=== PATIENT | female | born 1935 | race Caucasian/White ===

== ENCOUNTER → 2018-08-10 14:54 | Outpatient (CLI) | payer MEDICARE, SELFPAY ==
[2018-08-10 16:46] LABS: AST(SGOT) 21 U/L (15-37); Alanine Aminotransfer ALT/SGPT 28 U/L (13-56); Albumin, Serum 3.2 g/dL (3.2-5.0); Alkaline Phosphatase 140 U/L (45-117); Bilirubin, Direct 0.09 mg/dL (0.00-0.30); Globulin 4.1 g/dL (2.2-4.2); Protein, Total 7.3 g/dL (6.4-8.2)
== END ==
PROVIDERS: Family Provider Internal Medicine; PCP Internal Medicine; Referring Provider Clinical Nurse Specialist Acute Care; Visit Provider Clinical Nurse Specialist Acute Care
DX: M31.6 Other giant cell arteritis (principal)
CPT/HCPCS: 36415; 80076

== ENCOUNTER → 2018-08-27 08:50 | Outpatient (CLI) | payer MEDICARE, MEDICAID, SELFPAY ==
--- NOTE | 2018-08-27 09:05 | RAD_ITS ---
STUDY: AIR-CONTRAST UPPER GI SERIES. REASON FOR EXAM: Female, 82 years old. Chronic nausea with gastroesophageal reflux. FLUOROSCOPY TIME (if supplied): (0:42) minutes/seconds. 18 spot views were obtained. TECHNIQUE: The patient ingested barium. Multiple images of the esophagus, stomach and duodenum were obtained. COMPARISON: None. FINDINGS: The esophagus is unremarkable. There is no evidence of esophageal obstruction. There is no evidence of gastroesophageal reflux. The stomach and duodenum are unremarkable. There is no evidence of ulceration. No mass lesion is seen. RAD/Upper GI Series Only IMPRESSION: Unremarkable air contrast upper GI series. Electronically Signed: Asif Fiore, at 9:21 EDT , Service support ,
[2018-08-27 10:07] LABS: Erythrocyte Sedimentation Rate > 130 mm/hr (0-30)
== END ==
PROVIDERS: Family Provider Internal Medicine; PCP Internal Medicine; Referring Provider Nurse Practitioner Adult Health; Visit Provider Nurse Practitioner Adult Health
DX: R11.0 Nausea (principal); K29.60 Other gastritis without bleeding
CPT/HCPCS: 74246; 85652

== ENCOUNTER → 2018-10-04 14:56 | Outpatient (CLI) | payer MEDICARE, SELFPAY ==
[2015-02-17 16:11] VITALS: BMI 28.5
[2018-10-04 16:13] LABS: Erythrocyte Sedimentation Rate 29 mm/hr (0-30)
[2018-10-04 16:37] LABS: CRP < 2.90 mg/L (0.0-3.0)
== END ==
PROVIDERS: Family Provider Internal Medicine; PCP Internal Medicine; Referring Provider Psychiatry & Neurology Neurology; Visit Provider Psychiatry & Neurology Neurology
DX: R51 Headache (principal)
CPT/HCPCS: 36415; 85652; 86140

== ENCOUNTER 2018-10-04 15:19 | Observation (INO) | payer MEDICARE, MEDICAID, SELFPAY ==
[2018-10-04] VITALS (11 sets, daily range): BP systolic 108–166; BP diastolic 56–91; PULSE 69–89; RESP 15–22; TEMP 36.6–36.8; O2SAT 94–98; BMI 29.7; BMI 28.2
--- NOTE | 2018-10-04 15:34 | RAD_ITS ---
STUDY: X-RAY CHEST REASON FOR EXAM: Female, 82 years old. Chest pain. TECHNIQUE: Single AP portable view of the chest. COMPARISON: Comparison is made with prior study dated October 31, 2010. FINDINGS: EKG electrodes are seen. Elevation of the right hemidiaphragm. There is no demonstrated pleural abnormality. There is borderline cardiomegaly. Normal mediastinum and sharon. Normal visualized pulmonary arteries. There is atherosclerotic tortuosity of the aortic arch and descending thoracic aorta. Normal visualized thoracic spine. Normal visualized ribs, clavicles, and shoulders. There is no demonstrated abnormality of the visualized soft tissue structures of the upper abdomen. RAD/Chest 1 View (Portable) IMPRESSION: Borderline cardiomegaly. Electronically Signed: Asif Fiore, at 15:57 EDT , Service support ,
--- NOTE | 2018-10-04 15:34 | EKG12_ITS ---
Test Reason : CP Blood Pressure : / mmHG Vent. Rate : 090 BPM Atrial Rate : 090 BPM P-R Int : 150 ms QRS Dur : 080 ms QT Int : 340 ms P-R-T Axes : 052 -57 026 degrees QTc Int : 415 ms Normal sinus rhythm Left axis deviation Inferior-posterior infarct , age undetermined , cannot be excluded Poor R-Wave Progression Abnormal ECG Confirmed by YARI PAYNE, BRIAN ([id number]), editorial specialist MONSERRAT ALLEN ([id number]) on 10/08/2018 10:28:16 AM Referred By: Juan Carlos Pirere Confirmed By:BRIAN GREENBERG MD
[2018-10-04] MEDS: Aspirin 81 MG TAB.CHEW 182 MG PO (15:54)
--- NOTE | 2018-10-04 15:57 | ED.VISSUMM ---
- ER Visit Summary Date of Service: 10/04/18 Chief Complaint: [Chest pain and palpitations] History of Present Illness: The patient is a 82 F [presents to the emergency department from her primary care physician's office after complaining of palpitations and chest discomfort. Patient is somewhat of a poor historian due to history of some dementia however she states that she always has this pain. The daughter who has power of sports attorney takes care of the patient states that this is the first time she has her the patient complain of this. Patient denies any recent travel or surgery. Patient not had a fever cough. Patient does complain of dyspnea that is chronic as well as nausea. Patient's been having hot flashes. Patient does have a history of glaucoma and frequent headaches.] Physical Examination: [HEENT-PERRLA, EOMI. Cranial nerves II through XII grossly intact. TMs clear. Mucous membranes moist. No adenopathy. Cardiovascular-regular rate and rhythm without murmur or ectopy Lungs-clear to auscultation, chest wall stable without crepitus or subcu emphysema Abdomen-normoactive bowel sounds, soft, nontender, no rebound or rigidity, no peritoneal signs. Extremities-intact ?4, normal range of motion, normal pulses, atraumatic] Test Results: [EKG obtained arrival shows sinus rhythm ventricular rate of [address] changes and old inferior infarct noted. CBC with differential showed a white blood cell count of 17.2, hemoglobin 14.8, hematocrit 45, platelets 240. Chemistries unremarkable. Troponin was less than 0.015. Urinalysis was normal. Chest x-ray showed some mild cardiomegaly otherwise nothing acute.] Emergency Department Course and Treatment: [Patient received aspirin and initially was given 1 sublingual nitroglycerin. Patient's discomfort would come and go and at one point she had diaphoresis and a repeat EKG was obtained that showed a sinus rhythm with rate of 79 bpm and evidence of old inferior infarct, EKG unchanged from first EKG.] Treatment Plan: [Admit for further work-up and evaluation ] Disposition: [Admit] Impression: [Chest pain-rule out acute coronary syndrome] This note was generated with [employer]ation software. It may contain incorrect words, spelling, and punctuation that were not noted in review of the chart prior to signing ED Disposition - Plan for ED Patient: Referrals: oGld Marrero MD [Primary Care Provider] -
[2018-10-04 16:14] LABS: Absolute Lymphocyte Count 0.94 X10^3/ul (0.83-4.51); Absolute Neutrophil Count 15.2 X10^3/uL (2.0-7.7); Basophil# 0.01 X10^3/uL; Basophil% 0.1 % (0-1); Eosinophil# 0.01 X10^3/uL; Eosinophils% 0.1 % (0-5); Hematocrit 44.8 % (37-47); Hemoglobin 14.8 g/dl (12.0-15.0); Lymphocyte # 0.94 X10^3/ul (4.0); Lymphocyte % 5.5 % (19-41); Mean Corpuscular Hgb 30.4 pg (27.0-32.0); Mean Platelet Vol. 10.4 fl (6.2-12.0); Monocyte# 0.86 X10^3/uL; Neutrophil # 15.15 X10^3/uL (2.7-7.7); Neutrophil % 88.1 % (47-70); Platelet Count 240 K/mm3 (150-450); RBC Distribution Width CV 14.2 % (11.6-14.6); RBC Distribution Width SD 47.8 fl (35.1-43.9); Red Blood Count 4.87 M/mm3 (4.2-5.4); White Blood Count 17.2 K/mm3 (4.4-11.0)
[2018-10-04 16:17] LABS: POSITIVE COUNT NO; POSITIVE DIFFERENTIAL NO; POSITIVE MORPHOLOGY NO
[2018-10-04] MEDS: 0.9% Normal Saline 1,000 ML 150 ML IV (16:30)
[2018-10-04 16:35] LABS: Bacteria 0 SEEN /hpf (None Seen); Mucous, Urine 0 SEEN /hpf (<or=2+); Red Blood Cells-Urine 0 SEEN /hpf (0-5)
[2018-10-04 16:36] LABS: Color, Urine Straw (Yellow); Glucose, Dipstick Normal (Normal); Ketone-Dipstick Negative (Negative); Leukocyte Esterase-Dipstick Negative /ul (Negative); Nitrite-Dipstick Negative (Negative); Occult Blood-Urine 10 /ul (Negative); Protein-Dipstick Negative (Negative); Urine Bilirubin Dipstick Negative (Negative); Urine Clarity Clear (Clear); Urine Urobilinogen Normal (Normal)
[2018-10-04 17:02] LABS: Squamous Epithelial Cells - UA 0-5 SEEN /hpf (5-10)
[2018-10-04 17:03] LABS: White Blood Cells 0-5 SEEN /hpf (0-5)
[2018-10-04 17:47] LABS: Anion Gap 10 (5-15); BUN 18 mg/dL (7-18); BUN/Creat Ratio 18.9 RATIO (10-20); Chloride 103 mmol/L (98-107); Creatinine, Serum 0.95 mg/dL (0.55-1.02); EST Glomerular Filtration Rate 60 mL/min (>60); Est Glom Filt Rate - Afr Amer 72 mL/min (>60); Glucose 155 mg/dL (74-106); Potassium 3.9 mmol/L (3.5-5.1); Sodium Level 137 mmol/L (136-145)
--- NOTE | 2018-10-04 18:05 | PCM.HP.STD ---
Problem List (1) Chest pain Status: Acute (2) Dementia Status: Acute Qualifiers: Dementia type: vascular dementia (3) History of TIA (transient ischemic attack) Status: Chronic History of Present Illness Date of Admission: 10/04/18 Chief Complaint: Chest pain The patient is a 82 year old F with past medical history of dementia, history of probable valvular heart disease in her childhood, resident with her daughter who comes in with complaints of chest pain. She was referred from her primary care office. She also complains of palpitations with occasional shortness of breath with diaphoresis. Denies any fever or chills. Patient describes the chest pain as pressure-like, midsternal, associated with diaphoresis, comes and goes, lasts for a few seconds, associated with palpitations, denied any leg swelling or orthopnea or PND. Vitals in the ED show blood pressure 166/77, temperature 97.8 F, heart rate 89, respiratory 16, SPO2 96% on room air. Initial WBC count was 17.2, hemoglobin 14.8, platelet count was 240, BMP was unremarkable, troponins were negative. EKG shows normal sinus rhythm, no acute ST changes. Chest x-ray shows borderline cardiomegaly. Past Medical History Past Medical History (Chronic Problems): Chronic Problems Chronic diarrhea (Chronic) Urinary incontinence (Chronic) History of TIA (transient ischemic attack) (Chronic) IBS (irritable bowel syndrome) (Chronic) Allergies aspirin Adverse Reaction (Verified 02/17/15 16:14) Nausea Home Medications: Ambulatory Orders Medication Instructions Recorded Pantoprazole Sodium [Protonix] 40 mg PO DAILY 09/11/13 Acetaminophen [Tylenol Extra 1,000 mg PO Q8H PRN 10/04/18 Strength] Donepezil HCl [Aricept] 5 mg PO QHS 10/04/18 Memantine Hydrochloride [Namenda] 10 mg PO DAILY 10/04/18 Prednisone 20 mg PO TID 10/04/18 Surgical History: hysterectomy, - - s/p bladder sling surgery for urine incontinence Psychiatric History: No pertinent psych hx MEMBERSHIP CORRESPONDENT History: No pertinent MEMBERSHIP CORRESPONDENT history Lives: With Family Smoking Status: Never smoker Tobacco Use: Non-smoker Alcohol: None Drugs: None - *Family History Maternal History Items: No pertinent history Paternal History Items: No pertinent history Review of Systems Constitutional: Denies: Anorexia, Chills, Fever, Malaise, Weakness, Weight Change Eyes: Denies: Blurred vision, Cataracts, Conjunctivae Inflammation, Pain, Redness, Vision Change HEENT: Denies: Difficulty Hearing, Difficulty Swallowing, Head Aches, Hearing Changes, Sinus Congestion, Sinus Drainage, Sore Throat, Visual Changes Cardiovascular: Reports: Chest Pain, Chest Pressure, Chest Tightness. Denies: Claudication, Orthopnea, Palpitations, Paroxysmal Noc. Dyspnea Respiratory: Denies: Cough, Hemoptysis, Shortness of breath at rest, Shortness of breath upon exertion, Sputum production Gastrointestinal: Denies: Abdominal Pain, Constipation, Hematemesis, Hematochezia, Nausea, Vomiting Genitourinary: Denies: Dysuria, Frequency, Incontinence Musculoskeletal: Denies: Joint Pain, Joint stiffness, Joint swelling, Joint Tenderness Skin: Denies: Rash, Wounds Neurological: Denies: Numbness, Tingling, Focal weakness Psychiatric: Denies: Anxiety, Depression, Homicidal Ideations, Suicidal Ideations Hematologic/ Lymphatic: Denies: Easy Bruising, Easy Bleeding VTE Information - Inpt Only VTE Present on Admission: No VTE Pharm Prophylaxis ordered?: Yes Patient Problems: Active and Suspected Problems Chest pain (Acute) Dementia (Acute) - Physical Exam General: Alert, Oriented x3, Cooperative, No apparent distress HEENT: Atraumatic, PERRLA, EOMI, Normocephalic Oral: Moist Mucosa Neck: Supple, No JVD, Negative Carotid Bruits Lungs: Clear to auscultation, Normal air movement Cardiovascular: Regular rate, Regular Rhythm, Normal S1, Normal S2, No murmurs Abdomen: Bowel Sounds Present, Soft, Non Tender, Non-Distended, No Hepato-splenomegaly Extremities: No edema Skin: No rashes, No breakdown Musculoskeletal: No Tenderness to Palpation of Joints or Extremities Lymphatic: No Cervical, Supraclavicular, or Inguinal Adenopathy Neurological: Cranial nerves II-XII grossly intact, Neuro grossly intact Psych/Mental Status: Normal Affect, Appropriate Vital Signs Temp Pulse Resp BP Pulse Ox 97.8 F 84 20 H 108/91 H 94 10/04/18 15:25 10/04/18 17:22 10/04/18 17:22 10/04/18 17:22 10/04/18 17:22 Oxygen Delivery Method Room Air Weight: 80.966 kg Body Mass Index (BMI) 29.7 Laboratory Tests Past 24 Hrs 10/04/18 10/04/18 10/04/18 16:06 16:06 16:30 WBC 17.2 H RBC 4.87 Hgb 14.8 Hct 44.8 MCV 92.0 MCH 30.4 MCHC 33.0 RDW 14.2 RDW Differential 47.8 H Plt Count 240 MPV 10.4 Immature Gran % (Auto) 1.200 H Neut % (Auto) 88.1 H Lymph % (Auto) 5.5 L [place] % (Auto) 5.0 Eos % (Auto) 0.1 Baso % (Auto) 0.1 Absolute Neuts (auto) 15.2 H Absolute Lymphs (auto) 0.94 Total Counted Not Reportable Sodium Cancelled Potassium Cancelled Chloride Cancelled Carbon Dioxide Cancelled Anion Gap Cancelled BUN Cancelled Creatinine Cancelled Estim Creat Clear Calc Cancelled Est GFR (MDRD) Af Amer Cancelled Est GFR (MDRD) Non-Af Cancelled BUN/Creatinine Ratio Cancelled Glucose Cancelled Calcium Cancelled Troponin I Cancelled Urine Color Straw Urine Clarity Clear Urine pH 6.0 Ur Specific [place] 1.010 Urine Protein Negative Urine Glucose (UA) Normal Urine Ketones Negative Urine Occult Blood 10 H Urine Nitrite Negative Urine Bilirubin Negative Urine Urobilinogen Normal Ur Leukocyte Esterase Negative Urine RBC 0 SEEN Urine WBC 0-5 SEEN Ur Squamous Epith Cells 0-5 SEEN Urine Bacteria 0 SEEN Urine Mucus 0 SEEN 10/04/18 17:10 WBC RBC Hgb Hct MCV MCH MCHC RDW RDW Differential Plt Count MPV Immature Gran % (Auto) Neut % (Auto) Lymph % (Auto) [place] % (Auto) Eos % (Auto) Baso % (Auto) Absolute Neuts (auto) Absolute Lymphs (auto) Total Counted Sodium 137 Potassium 3.9 Chloride 103 Carbon Dioxide 24.0 Anion Gap 10 BUN 18 Creatinine 0.95 Estim Creat Clear Calc 42.50 Est GFR (MDRD) Af Amer 72 Est GFR (MDRD) Non-Af 60 BUN/Creatinine Ratio 18.9 Glucose 155 H Calcium 8.0 L Troponin I < 0.015 Urine Color Urine Clarity Urine pH Ur Specific [place] Urine Protein Urine Glucose (UA) Urine Ketones Urine Occult Blood Urine Nitrite Urine Bilirubin Urine Urobilinogen Ur Leukocyte Esterase Urine RBC Urine WBC Ur Squamous Epith Cells Urine Bacteria Urine Mucus Assessment/Plan All Active Problems Chest pain (Acute) Dementia (Acute) 82 year old F with past medical history of dementia, history of probable valvular heart disease in her childhood, resident with her daughter who comes in with complaints of chest pain. 1. Chest pain, suggestive of angina, troponins are negative, EKG unremarkable, stable vitals, no history of CAD Plan: Admit to PCU, monitor on telemetry, aspirin, nitro prn, lipid profile 2. Leucocytosis, likely reactive, no signs of infection 3. Probable valvular heart disease, in childhood, will get 2d-ECHO. 4. Dementia, on donezepil, memantine 5. DVT PPx- Heparin SC Code Visit OBSV E&M: 90681 Initial observation care L3
--- NOTE | 2018-10-04 18:22 | CASEMGMT ---
RN CM Assessment Introduced role of RN CM to patient and patient daughter Nicko at bedside. Patient with Short Term memory loss, Information for assessment provided by Dtprabhjot Maharaj.?Care providers, pharmacy, and demographics verified. Presentation: Palpitations and Chest Discomfort Admit Dx: CP Re-Admit: No Barriers/Issues: Applied for Medicaid x2 months ago, in process. Dtr has s/w [facility] [employer]ging for a Aide 3/week but they currently don't have any and she was told to contact [facility]. PCP: Gold Marrero Specialists: Neuro- Dr Pierre, Opth- supposed to have Cataract Surgery at the end of this month Preferred Pharmacy: [facility] Insurance: [employer] Rx Benefit:?Yes LNOK: Dtr Nicko Jayden LW/HPOA: Yes, HPOA- Dtr Nicko Beth Living Arrangements:? Lives with Domingo Maharaj and patient's sons, grandchildren in a SS Home, 4 steps to enter ADL?s: Ambulates with a Rollator, Requires assistance by Dtr with bathing and dressing. Transportation: Domingo Maharaj DME: Rollator, Commode, Built in Shower Chair, Grab bars. HHC: None SNF: None Goal: Home DC PLAN: Home with no anticipated needs identified at this time. Patient and Dtprabhjot Maharaj state have a lot of family support at home. RUBENS Boles
--- NOTE | 2018-10-04 18:40 | EKG12_ITS ---
Test Reason : REPEAT-CP Blood Pressure : / mmHG Vent. Rate : 079 BPM Atrial Rate : 079 BPM P-R Int : 162 ms QRS Dur : 082 ms QT Int : 372 ms P-R-T Axes : 025 -51 020 degrees QTc Int : 426 ms Normal sinus rhythm Left axis deviation Inferior infarct , age undetermined Poor R-Wave Progression Abnormal ECG Confirmed by YARI PAYNE, BRIAN ([id number]), editorial specialist MONSERRAT ALLEN ([id number]) on 10/08/2018 10:28:45 AM Referred By: Juan Carlos Pierre Confirmed By:BRIAN GREENBERG MD
--- NOTE | 2018-10-04 18:40 | ECHOD_ITS ---
Reason For Study: CHEST PAIN Procedure This was a 2D Doppler, Color Flow transthoracic echocardiogram. The exam was of adequate technical quality. Exam performed portable in patient room. Left Ventricle Normal LV size. Left ventricular systolic function is normal. The estimated ejection fraction is 70 %. No evidence for diastolic dysfunction. No regional wall motion abnormalities noted. Right Ventricle Normal RV size. Normal systolic function. Atria Normal left atrium. Normal right atrium. No doppler evidence for ASD. Mitral Valve There is no mitral annular calcification. Normal mitral valve. Mild (1+) mitral valve insufficiency. Tricuspid Valve Normal tricuspid valve. Mild (1+) tricuspid valve insufficiency. Right ventricular systolic pressure estimated to be 22 mmHg. Aortic Valve Trisinus/trileaflet aortic valve. Normal aortic valve. Pulmonic Valve The pulmonic valve is not well visualized. Trivial pulmonic valve insufficiency. Great Vessels Normal sized aortic root. MMode/2D Measurements & Calculations LVIDd: 4.2 cm IVSd: 0.81 cm Ao root diam: 3.0 cm LVIDs: 2.5 cm LVPWd: 0.86 cm FS: 39.5 % LAV(MOD-bp): 28.1 ml LA A4 area: 11.8 cm2 LA dimension(2D): 3.1 cm LAV(MOD-bp) Indexed: 15.3 ml/m2 LAV(MOD-sp2): 29.5 ml LAV(MOD-sp4): 25.5 ml RA A4 area: 10.0 cm2 Time Measurements MV dec time: 0.22 sec Doppler Measurements & Calculations MV E max antonio: 64.6 cm/sec Lat Peak E' Antonio: 6.8 cm/sec Med Peak E' Antonio: 5.8 cm/sec MV A max antonio: 91.0 cm/sec E/E' lat: 9.5 E/E' med: 11.1 MV E/A: 0.71 Ao V2 max: 123.3 cm/sec LV V1 max: 109.4 cm/sec TR max antonio: 215.8 cm/sec Ao max P.1 mmHg LV V1 max P.8 mmHg TR max P.1 mmHg Interpretation Summary Left ventricular systolic function is normal. The estimated ejection fraction is 70 %. Mild (1+) mitral valve insufficiency. Mild (1+) tricuspid valve insufficiency. Trivial pulmonic valve insufficiency. Right ventricular systolic pressure estimated to be 22 mmHg. No evidence for diastolic dysfunction. Ordering Physician: Casi Juares Referring Physician: BARB PARKER Performed By: Camila Han, RDCS, RVT
[2018-10-04] MEDS: 0.9% Normal Saline 1,000 ML 75 ML IV (18:52)
[2018-10-04 19:40] LABS: Magnesium 2.4 mg/dL (1.6-2.6)
[2018-10-04] MEDS: Acetaminophen 500 MG Tablet 1000 MG PO (20:44)
[2018-10-04] MEDS: Heparin Injection (Vial) 5,000 UNIT/ML VIAL 5000 UNIT SC (22:12)
[2018-10-04] MEDS: Donepezil HCl 5 MG Tablet PO (22:12)
[2018-10-05] MEDS: MELATONIN 3 MG TABLET PO (00:33)
[2018-10-05 02:59] VITALS: PULSE 70
--- NOTE | 2018-10-05 03:07 | EKG12_ITS ---
Test Reason : AM EKG Blood Pressure : / mmHG Vent. Rate : 070 BPM Atrial Rate : 070 BPM P-R Int : 168 ms QRS Dur : 082 ms QT Int : 390 ms P-R-T Axes : 046 -44 038 degrees QTc Int : 421 ms Normal sinus rhythm Left axis deviation Abnormal ECG When compared with ECG of 04-OCT-2018 19:30, MANUAL COMPARISON REQUIRED, DATA IS UNCONFIRMED Confirmed by ZEINA KELLOGG ([id number]), deputy editor in chief ORTIZ MARQUEZ ([id number]) on 10/12/2018 7:17:48 AM Referred By: Juan Carlos Pierre Confirmed By:ZEINA KELLOGG
[2018-10-05 04:18] VITALS: BP 133/74; PULSE 72; RESP 18; TEMP 36.9; O2SAT 93
--- NOTE | 2018-10-05 05:55 | EKG12_ITS ---
Test Reason : CP ADMISSION Blood Pressure : / mmHG Vent. Rate : 083 BPM Atrial Rate : 083 BPM P-R Int : 168 ms QRS Dur : 084 ms QT Int : 356 ms P-R-T Axes : 068 -51 058 degrees QTc Int : 418 ms Normal sinus rhythm Left axis deviation Inferior infarct , age undetermined Abnormal ECG When compared with ECG of 04-OCT-2018 17:48, MANUAL COMPARISON REQUIRED, DATA IS UNCONFIRMED Confirmed by ZEINA KELLOGG ([id number]), photographic editor MONSERRAT ALLEN ([id number]) on 10/11/2018 11:03:12 AM Referred By: Juan Carlos Pierre Confirmed By:ZEINA KELLOGG
[2018-10-05 06:37] VITALS: BP 134/71; PULSE 78; RESP 18; TEMP 36.4; O2SAT 92
[2018-10-05] MEDS: Aspirin E.C. 81 MG Tablet PO (06:40)
[2018-10-05 06:48] LABS: Hematocrit 41.4 % (37-47); Hemoglobin 13.6 g/dl (12.0-15.0); Mean Corp Hgb Conc 32.9 g/gl (32-36); Mean Corpuscular Hgb 29.9 pg (27.0-32.0); Mean Platelet Vol. 9.3 fl (6.2-12.0); Platelet Count 274 K/mm3 (150-450); RBC Distribution Width CV 13.6 % (11.6-14.6); RBC Distribution Width SD 44.2 fl (35.1-43.9); Red Blood Count 4.55 M/mm3 (4.2-5.4); Scan Indicated on CBC? Y/N NO; White Blood Count 13.2 K/mm3 (4.4-11.0)
[2018-10-05 06:55] LABS: Prothrombin Time (Protime)PT. 12.6 SECONDS (11.7-14.9)
[2018-10-05 06:56] LABS: Partial Thromboplast Time 24.1 Seconds (24.1-36.2)
[2018-10-05 07:15] LABS: Anion Gap 4 (5-15); BUN 16 mg/dL (7-18); BUN/Creat Ratio 21.3 RATIO (10-20); Chloride 105 mmol/L (98-107); Cholesterol 267 mg/dL (200); Creatinine, Serum 0.75 mg/dL (0.55-1.02); EST Glomerular Filtration Rate 79 mL/min (>60); Est Glom Filt Rate - Afr Amer 95 mL/min (>60); Estimated Creatinine Clearance 40.38 ml/min; Glucose 78 mg/dL (74-106); High Density Lipoprotein 48 mg/dL; Sodium Level 136 mmol/L (136-145); Triglycerides 312 mg/dL; Very Low Density Lipoprotein 62 mg/dL (5-40)
[2018-10-05 07:18] VITALS: PULSE 74
[2018-10-05] MEDS: predniSONE 20 MG Tablet PO ×2 (09:46→11:42)
[2018-10-05] MEDS: Pantoprazole Sodium 40 MG Tablet PO (09:46)
[2018-10-05] MEDS: Memantine Hydrochloride 10 MG Tablet PO (09:47)
[2018-10-05 12:30] VITALS: BP 128/79; PULSE 84; RESP 18; TEMP 36.7; O2SAT 97
--- NOTE | 2018-10-05 13:19 | STRESSREP_ITS ---
Stress Test Report Date: 10/05/2018 Procedure: Pharmacologic stress nuclear imaging study Indications: Chest pain Consent: Per the patient Procedure: The patient underwent pharmacologic (Regadenoson) evaluation with a peak heart rate of 90 beats per minute (64 %predicted maximal heart rate) and a peak blood pressure of 124/78 mmHg. The baseline ECG demonstrated normal sinus rhythm. The peak pharmacologic ECG demonstrated no obvious ECG changes. There were no cardiac dysrhythmias pretest, during pharmacologic infusion, or recovery. The patient noted chest discomfort in recovery with spontaneous resolution. The examination was discontinued secondary to completion of protocol. Impression: 1. Pharmacologic (Regadenoson) evaluation 2. Peak pharmacologic ECG with no obvious ECG changes. 3. There were no cardiac dysrhythmias pretest, during pharmacologic infusion, or recovery. 4. Nuclear images pending Myocardial perfusion imaging study: Technique: The patient was injected with 10.6 millicuries of technetium 99m Cardiolite and subsequently rest SPECT Cardiolite nuclear imaging was obtained in the horizontal long, vertical long, and short axis views. The patient underwent pharmacologic (Regadenoson) evaluation with a peak heart rate of 90 beats per minute (64 % percent predicted maximal heart rate) and a peak blood pressure of 124/78 mmHg. The patient was injected with 36 millicuries of technetium 99m Cardiolite and subsequently stress SPECT Cardiolite nuclear imaging was obtained in the horizontal long, vertical long, and short axis views. A gated Cardiolite study at peak stress was obtained. Interpretation: Rest and stress SPECT Cardiolite nuclear imaging status post realignment, normalization, and attenuation correction demonstrate relative uniform tracer uptake and myocardial perfusion appearing within normal limits. There is end systolic thickening and brightening. The gated Cardiolite study demonstrates myocardial thickening and inward wall motion. The reported LVEF is 94 %. Impression: 1. Rest and stress SPECT Cardiolite nuclear imaging demonstrate relative uniform tracer uptake and myocardial perfusion appearing within normal limits. 2. The gated Cardiolite study reports an LVEF of 94 %. This note was generated with [employer] software. It may contain incorrect words, spelling, and punctuation that were not noted in checking the note before signing.
--- NOTE | 2018-10-05 13:35 | PCM.DC ---
- Discharge Diagnoses Current Active Problems: Current Active and Chronic Problems Chest pain (Acute) Dementia (Acute) You will use the following diet at home:: Cardiac Your food should be the consistency of: Regular Your liquids should be the consistency of: Regular/Thin Discharge Activity: Return to Normal Activity Allergies/Adverse Reactions: Allergies aspirin Adverse Reaction (Verified 02/17/15 16:14) Nausea Medications to take at Discharge Pantoprazole Sodium [Protonix] 40 mg PO DAILY 09/11/13 Acetaminophen [Tylenol] 1,000 mg PO Q8H PRN 10/04/18 Donepezil HCl [Aricept] 5 mg PO QHS 10/04/18 Memantine Hydrochloride [Namenda] 10 mg PO DAILY 10/04/18 Prednisone 20 mg PO TID 10/04/18 Atorvastatin Calcium 40 mg PO DAILY #30 tablet 10/05/18 The following prescriptions were given: Atorvastatin Calcium 40 mg PO DAILY #30 tablet Primary Care Physician: Gold Marrero MD [Primary Care Provider] - Please follow up with your Primary Care Physician in: 1-2 weeks Test Results: Test results from this visit will be discussed in further detail at your follow-up appointment, if applicable. Proposed Discharge Date: 10/05/18
--- NOTE | 2018-10-05 13:46 | DCINST_ITS ---
- Discharge Diagnoses Current Active Problems: Current Active and Chronic Problems Chest pain (Acute) Dementia (Acute) You will use the following diet at home:: Cardiac Your food should be the consistency of: Regular Your liquids should be the consistency of: Regular/Thin Discharge Activity: Return to Normal Activity Allergies/Adverse Reactions: Allergies aspirin Adverse Reaction (Verified 02/17/15 16:14) Nausea Medications to take at Discharge Pantoprazole Sodium [Protonix] 40 mg PO DAILY 09/11/13 Acetaminophen [Tylenol] 1,000 mg PO Q8H PRN 10/04/18 Donepezil HCl [Aricept] 5 mg PO QHS 10/04/18 Memantine Hydrochloride [Namenda] 10 mg PO DAILY 10/04/18 Prednisone 20 mg PO TID 10/04/18 Atorvastatin Calcium 40 mg PO DAILY #30 tablet 10/05/18 The following prescriptions were given: Atorvastatin Calcium 40 mg PO DAILY #30 tablet Primary Care Physician: Gold Marrero MD [Primary Care Provider] - Please follow up with your Primary Care Physician in: 1-2 weeks Test Results: Test results from this visit will be discussed in further detail at your follow- up appointment, if applicable. Proposed Discharge Date: 10/05/18
--- NOTE | 2018-10-05 14:04 | DS.PCM_ITS ---
<Kristian Mendoza - Last Filed: 10/05/18 13:37> Discharge Date and Diagnosis - Problem List Patient Problems: Active and Suspected Problems Chest pain (Acute) Dementia (Acute) Date of Admission: 10/04/18 Date of Discharge: 10/05/18 - Primary Discharge Diagnosis Active and Suspected Problems Chest pain (Acute) - musculoskeletal HLD Dementia (Acute) IBS ? Valvular heart disease - Secondary Discharge Diagnosis Chronic Problems Chronic diarrhea (Chronic) Urinary incontinence (Chronic) History of TIA (transient ischemic attack) (Chronic) IBS (irritable bowel syndrome) (Chronic) Hospital Course and Treatment Imaging Results: 10/05/18 05:55 Nuclear Stress Test - Chemical [NM] AM (NON MEDS) Negative for inducible ischemia RAD/Chest 1 View (Portable) IMPRESSION: Borderline cardiomegaly. Echocardiogram: Final results pending. Operations: None Procedures: 2-D Echocardiogram, Stress test Summary of Care Provided: Hospital course: The patient is a 82 year old F with pmhx of possible valvular heart disease as a child, dementia, IBS, who presented to the ER with c/o chest pain. She was sent by her PCP to the ER as she had palpitations, chest pressure, sharp left sided chest pain, and SOB with diaphoresis. In the ER she had negative CXR, negative troponin, negative EKG. She was admitted to the PCU on tele. No events on tele. Troponin cycled - negative. Repeat EKGs negative. Stress test the following morning was negative. As she had a hx of childhood valvular heart disease, an echo was obtained. Results are pending at this time and may be followed up with as an outpatient when she sees her PCP in 1-2 weeks. She did have significantly elevated triglycerides, total cholesterol, and she was started on lipitor. She was discharged home in stable condition. This patient was seen by Kristian Mendoza PA-C under the supervision of Doctor Huber. [] Patient Problems: Active and Suspected Problems Chest pain (Acute) Dementia (Acute) - Physical Exam General: Alert, Oriented x3, Cooperative HEENT: Atraumatic, PERRLA, EOMI, Normocephalic Neck: Supple, No JVD, Negative Carotid Bruits Lungs: Clear to auscultation, Normal air movement Cardiovascular: Regular rate, No murmurs Abdomen: Bowel Sounds Present, Soft, Non Tender Extremities: No edema, Capillary Refill Less than 3 Seconds Skin: No rashes, No breakdown Musculoskeletal: No Tenderness to Palpation of Joints or Extremities Neurological: Cranial nerves II-XII grossly intact Psych/Mental Status: Normal Affect, Appropriate, Alert and oriented to time, place, person, mood and affect Vital Signs Temp Pulse Resp BP Pulse Ox 97.6 F L 74 18 134/71 H 92 10/05/18 06:37 10/05/18 07:18 10/05/18 06:37 10/05/18 06:37 10/05/18 06:37 Oxygen Delivery Method Room Air Weight: 169 lb 8 oz Body Mass Index (BMI) 28.2 Intake and Output for Last 24 Hours 10/03/18 10/04/18 10/05/18 23:59 23:59 23:59 Intake Total 1180 / 1180 Balance 1180 / 1180 Laboratory Tests Past 24 Hrs 10/04/18 10/04/18 10/04/18 16:06 16:06 16:30 WBC 17.2 H RBC 4.87 Hgb 14.8 Hct 44.8 MCV 92.0 MCH 30.4 MCHC 33.0 RDW 14.2 RDW Differential 47.8 H Plt Count 240 MPV 10.4 Immature Gran % (Auto) 1.200 H Neut % (Auto) 88.1 H Lymph % (Auto) 5.5 L [place] % (Auto) 5.0 Eos % (Auto) 0.1 Baso % (Auto) 0.1 Absolute Neuts (auto) 15.2 H Absolute Lymphs (auto) 0.94 Total Counted Not Reportable PT INR APTT Sodium Cancelled Potassium Cancelled Chloride Cancelled Carbon Dioxide Cancelled Anion Gap Cancelled BUN Cancelled Creatinine Cancelled Estim Creat Clear Calc Cancelled Est GFR (MDRD) Af Amer Cancelled Est GFR (MDRD) Non-Af Cancelled BUN/Creatinine Ratio Cancelled Glucose Cancelled Calcium Cancelled Magnesium Troponin I Cancelled Triglycerides Cholesterol LDL Cholesterol VLDL Cholesterol HDL Cholesterol Urine Color Straw Urine Clarity Clear Urine pH 6.0 Ur Specific [place] 1.010 Urine Protein Negative Urine Glucose (UA) Normal Urine Ketones Negative Urine Occult Blood 10 H Urine Nitrite Negative Urine Bilirubin Negative Urine Urobilinogen Normal Ur Leukocyte Esterase Negative Urine RBC 0 SEEN Urine WBC 0-5 SEEN Ur Squamous Epith Cells 0-5 SEEN Urine Bacteria 0 SEEN Urine Mucus 0 SEEN 10/04/18 10/04/18 10/04/18 17:10 17:10 20:04 WBC RBC Hgb Hct MCV MCH MCHC RDW RDW Differential Plt Count MPV Immature Gran % (Auto) Neut % (Auto) Lymph % (Auto) [place] % (Auto) Eos % (Auto) Baso % (Auto) Absolute Neuts (auto) Absolute Lymphs (auto) Total Counted PT INR APTT Sodium 137 Potassium 3.9 Chloride 103 Carbon Dioxide 24.0 Anion Gap 10 BUN 18 Creatinine 0.95 Estim Creat Clear Calc 42.50 Est GFR (MDRD) Af Amer 72 Est GFR (MDRD) Non-Af 60 BUN/Creatinine Ratio 18.9 Glucose 155 H Calcium 8.0 L Magnesium 2.4 Troponin I < 0.015 < 0.015 Triglycerides Cholesterol LDL Cholesterol VLDL Cholesterol HDL Cholesterol Urine Color Urine Clarity Urine pH Ur Specific [place] Urine Protein Urine Glucose (UA) Urine Ketones Urine Occult Blood Urine Nitrite Urine Bilirubin Urine Urobilinogen Ur Leukocyte Esterase Urine RBC Urine WBC Ur Squamous Epith Cells Urine Bacteria Urine Mucus 10/04/18 10/05/18 10/05/18 23:50 06:00 06:00 WBC 13.2 H RBC 4.55 Hgb 13.6 Hct 41.4 MCV 91.0 MCH 29.9 MCHC 32.9 RDW 13.6 RDW Differential 44.2 H Plt Count 274 MPV 9.3 Immature Gran % (Auto) Neut % (Auto) Lymph % (Auto) [place] % (Auto) Eos % (Auto) Baso % (Auto) Absolute Neuts (auto) Absolute Lymphs (auto) Total Counted PT INR APTT Sodium 136 Potassium 4.0 Chloride 105 Carbon Dioxide 27.0 Anion Gap 4 L BUN 16 Creatinine 0.75 Estim Creat Clear Calc 40.38 Est GFR (MDRD) Af Amer 95 Est GFR (MDRD) Non-Af 79 BUN/Creatinine Ratio 21.3 H Glucose 78 Calcium 8.0 L Magnesium Troponin I < 0.015 Triglycerides 312 H Cholesterol 267 H LDL Cholesterol 157 H VLDL Cholesterol 62 H HDL Cholesterol 48 Urine Color Urine Clarity Urine pH Ur Specific [place] Urine Protein Urine Glucose (UA) Urine Ketones Urine Occult Blood Urine Nitrite Urine Bilirubin Urine Urobilinogen Ur Leukocyte Esterase Urine RBC Urine WBC Ur Squamous Epith Cells Urine Bacteria Urine Mucus 10/05/18 06:00 WBC RBC Hgb Hct MCV MCH MCHC RDW RDW Differential Plt Count MPV Immature Gran % (Auto) Neut % (Auto) Lymph % (Auto) [place] % (Auto) Eos % (Auto) Baso % (Auto) Absolute Neuts (auto) Absolute Lymphs (auto) Total Counted PT 12.6 INR 1.0 APTT 24.1 Sodium Potassium Chloride Carbon Dioxide Anion Gap BUN Creatinine Estim Creat Clear Calc Est GFR (MDRD) Af Amer Est GFR (MDRD) Non-Af BUN/Creatinine Ratio Glucose Calcium Magnesium Troponin I Triglycerides Cholesterol LDL Cholesterol VLDL Cholesterol HDL Cholesterol Urine Color Urine Clarity Urine pH Ur Specific [place] Urine Protein Urine Glucose (UA) Urine Ketones Urine Occult Blood Urine Nitrite Urine Bilirubin Urine Urobilinogen Ur Leukocyte Esterase Urine RBC Urine WBC Ur Squamous Epith Cells Urine Bacteria Urine Mucus Discharge Diet: Low fat/ Low Cholesterol, 2000 mg Sodium Diet Discharge Activity: Return to Normal Activity Home Medications: Medications to take at Discharge Pantoprazole Sodium [Protonix] 40 mg PO DAILY 09/11/13 Acetaminophen [Tylenol] 1,000 mg PO Q8H PRN 10/04/18 Donepezil HCl [Aricept] 5 mg PO QHS 10/04/18 Memantine Hydrochloride [Namenda] 10 mg PO DAILY 10/04/18 Prednisone 20 mg PO TID 10/04/18 Atorvastatin Calcium 40 mg PO DAILY #30 tablet 10/05/18 Following Prescrptions Were Given to Patient: Atorvastatin Calcium 40 mg PO DAILY #30 tablet Primary Care Physician: Gold Marrero MD [Primary Care Provider] - Please follow up with your Primary Care Physician in: 1-2 weeks Disposition: Home Minutes spent on discharge:: 35 Patient Condition:: Stable Medical Necessity - Tobacco Use Smoking Status: Never smoker Tobacco Use: Non-smoker Meaningful Use Info Meaningful Use Diagnoses (Choose all that apply): None applicable <Price Ngo - Last Filed: 10/05/18 14:50> Discharge Date and Diagnosis - Primary Discharge Diagnosis Active and Suspected Problems Chest pain (Acute) Dementia (Acute) - Secondary Discharge Diagnosis Chronic Problems Chronic diarrhea (Chronic) Urinary incontinence (Chronic) History of TIA (transient ischemic attack) (Chronic) IBS (irritable bowel syndrome) (Chronic) Hospital Course and Treatment Imaging Results: 10/05/18 05:55 Nuclear Stress Test - Chemical [NM] AM (NON MEDS) Operations: None Procedures: 2-D Echocardiogram, Stress test Summary of Care Provided: Patient seen and examined independently. Data reviewed. I agree with the above note by the physician campaign assistant. The patient is a 82 year old F presents with chest pain. Patient underwent a cardiac workup, including stress test which were all negative. Patient was started on simvastatin for hypercholesterolemia. Otherwise patient stable and discharged home. [] - Physical Exam General: Alert, Cooperative HEENT: Atraumatic, Normocephalic Neck: No Nodes, Thyroid Normal Size and Texture Lungs: Clear to auscultation, Normal air movement Cardiovascular: Regular rate, Regular Rhythm, Normal S1, Normal S2 Psych/Mental Status: Normal Affect, Appropriate Vital Signs Temp Pulse Resp BP Pulse Ox 36.7 C 84 18 128/79 H 97 10/05/18 12:30 10/05/18 12:30 10/05/18 12:30 10/05/18 12:30 10/05/18 12:30 Oxygen Delivery Method Room Air Weight: 76.884 kg Body Mass Index (BMI) 28.2 Intake and Output for Last 24 Hours 10/03/18 10/04/18 10/05/18 23:59 23:59 23:59 Intake Total 1180 / 1180 Balance 1180 / 1180 Laboratory Tests Past 24 Hrs 10/04/18 10/04/18 10/04/18 16:06 16:06 16:30 WBC 17.2 H RBC 4.87 Hgb 14.8 Hct 44.8 MCV 92.0 MCH 30.4 MCHC 33.0 RDW 14.2 RDW Differential 47.8 H Plt Count 240 MPV 10.4 Immature Gran % (Auto) 1.200 H Neut % (Auto) 88.1 H Lymph % (Auto) 5.5 L [place] % (Auto) 5.0 Eos % (Auto) 0.1 Baso % (Auto) 0.1 Absolute Neuts (auto) 15.2 H Absolute Lymphs (auto) 0.94 Total Counted Not Reportable PT INR APTT Sodium Cancelled Potassium Cancelled Chloride Cancelled Carbon Dioxide Cancelled Anion Gap Cancelled BUN Cancelled Creatinine Cancelled Estim Creat Clear Calc Cancelled Est GFR (MDRD) Af Amer Cancelled Est GFR (MDRD) Non-Af Cancelled BUN/Creatinine Ratio Cancelled Glucose Cancelled Calcium Cancelled Magnesium Troponin I Cancelled Triglycerides Cholesterol LDL Cholesterol VLDL Cholesterol HDL Cholesterol Urine Color Straw Urine Clarity Clear Urine pH 6.0 Ur Specific [place] 1.010 Urine Protein Negative Urine Glucose (UA) Normal Urine Ketones Negative Urine Occult Blood 10 H Urine Nitrite Negative Urine Bilirubin Negative Urine Urobilinogen Normal Ur Leukocyte Esterase Negative Urine RBC 0 SEEN Urine WBC 0-5 SEEN Ur Squamous Epith Cells 0-5 SEEN Urine Bacteria 0 SEEN Urine Mucus 0 SEEN 10/04/18 10/04/18 10/04/18 17:10 17:10 20:04 WBC RBC Hgb Hct MCV MCH MCHC RDW RDW Differential Plt Count MPV Immature Gran % (Auto) Neut % (Auto) Lymph % (Auto) [place] % (Auto) Eos % (Auto) Baso % (Auto) Absolute Neuts (auto) Absolute Lymphs (auto) Total Counted PT INR APTT Sodium 137 Potassium 3.9 Chloride 103 Carbon Dioxide 24.0 Anion Gap 10 BUN 18 Creatinine 0.95 Estim Creat Clear Calc 42.50 Est GFR (MDRD) Af Amer 72 Est GFR (MDRD) Non-Af 60 BUN/Creatinine Ratio 18.9 Glucose 155 H Calcium 8.0 L Magnesium 2.4 Troponin I < 0.015 < 0.015 Triglycerides Cholesterol LDL Cholesterol VLDL Cholesterol HDL Cholesterol Urine Color Urine Clarity Urine pH Ur Specific [place] Urine Protein Urine Glucose (UA) Urine Ketones Urine Occult Blood Urine Nitrite Urine Bilirubin Urine Urobilinogen Ur Leukocyte Esterase Urine RBC Urine WBC Ur Squamous Epith Cells Urine Bacteria Urine Mucus 10/04/18 10/05/18 10/05/18 23:50 06:00 06:00 WBC 13.2 H RBC 4.55 Hgb 13.6 Hct 41.4 MCV 91.0 MCH 29.9 MCHC 32.9 RDW 13.6 RDW Differential 44.2 H Plt Count 274 MPV 9.3 Immature Gran % (Auto) Neut % (Auto) Lymph % (Auto) [place] % (Auto) Eos % (Auto) Baso % (Auto) Absolute Neuts (auto) Absolute Lymphs (auto) Total Counted PT INR APTT Sodium 136 Potassium 4.0 Chloride 105 Carbon Dioxide 27.0 Anion Gap 4 L BUN 16 Creatinine 0.75 Estim Creat Clear Calc 40.38 Est GFR (MDRD) Af Amer 95 Est GFR (MDRD) Non-Af 79 BUN/Creatinine Ratio 21.3 H Glucose 78 Calcium 8.0 L Magnesium Troponin I < 0.015 Triglycerides 312 H Cholesterol 267 H LDL Cholesterol 157 H VLDL Cholesterol 62 H HDL Cholesterol 48 Urine Color Urine Clarity Urine pH Ur Specific [place] Urine Protein Urine Glucose (UA) Urine Ketones Urine Occult Blood Urine Nitrite Urine Bilirubin Urine Urobilinogen Ur Leukocyte Esterase Urine RBC Urine WBC Ur Squamous Epith Cells Urine Bacteria Urine Mucus 10/05/18 06:00 WBC RBC Hgb Hct MCV MCH MCHC RDW RDW Differential Plt Count MPV Immature Gran % (Auto) Neut % (Auto) Lymph % (Auto) [place] % (Auto) Eos % (Auto) Baso % (Auto) Absolute Neuts (auto) Absolute Lymphs (auto) Total Counted PT 12.6 INR 1.0 APTT 24.1 Sodium Potassium Chloride Carbon Dioxide Anion Gap BUN Creatinine Estim Creat Clear Calc Est GFR (MDRD) Af Amer Est GFR (MDRD) Non-Af BUN/Creatinine Ratio Glucose Calcium Magnesium Troponin I Triglycerides Cholesterol LDL Cholesterol VLDL Cholesterol HDL Cholesterol Urine Color Urine Clarity Urine pH Ur Specific [place] Urine Protein Urine Glucose (UA) Urine Ketones Urine Occult Blood Urine Nitrite Urine Bilirubin Urine Urobilinogen Ur Leukocyte Esterase Urine RBC Urine WBC Ur Squamous Epith Cells Urine Bacteria Urine Mucus Discharge Diet: Low fat/ Low Cholesterol, 2000 mg Sodium Diet Discharge Activity: Return to Normal Activity Disposition: Home Minutes spent on discharge:: 35 Patient Condition:: Stable Meaningful Use Info Meaningful Use Diagnoses (Choose all that apply): None applicable Code Visit OBSV E&M: 11029 Observation care discharge
[2018-10-05 15:32] VITALS: PULSE 84
== END 2018-10-05 13:35 | disposition home or self-care (01) ==
LOC: ED 16:00 → PCU 18:26
PROVIDERS: Admitting Provider Internal Medicine; Emergency Provider Emergency Medicine; Family Provider Internal Medicine; PCP Internal Medicine
DX: R07.89 Other chest pain (principal); R00.2 Palpitations; Z79.899 Other long term (current) drug therapy; F01.50 Vascular dementia, unspecified severity, without behavioral disturbance, psychotic disturbance, mood disturbance, and anxiety; Z86.73 Personal history of transient ischemic attack (TIA), and cerebral infarction without residual deficits; R32 Unspecified urinary incontinence; K58.9 Irritable bowel syndrome, unspecified; D72.829 Elevated white blood cell count, unspecified; R51 Headache
CPT/HCPCS: 36415; 71045; 78452; 80048; 80061; 81001; 83735; 84484; 85025; 85027; 85610; 85652; 85730; 86140; 93005; 93017; 93306; 96360; 96361; 96372; 97161; 97165; 99218; 99285; A9500; J7030; A4216; G0378; J2785

== ENCOUNTER → 2018-10-11 | Outpatient (CLI) | payer MEDICARE, MEDICAID, SELFPAY ==
[2018-10-04 18:45] VITALS: BMI 28.2
--- NOTE | 2018-10-11 13:15 | MRI_ITS ---
STUDY: MRI BRAIN WITH AND WITHOUT CONTRAST REASON FOR EXAM: Female, 82 years old. Constant headache behind the right eye with short-term memory loss for 5 years TECHNIQUE: Standardized multiplanar fat and water weighted pulse sequences were obtained. 15 IV Dotarem was administered for the contrast portion of the examination. COMPARISON: None. FINDINGS: Normal size of the ventricles and extra-axial spaces for the patient's age. There are a limited number of small white matter hyperintensities, distributed throughout the deep white matter tracts of the cerebral hemispheres, consistent with mild chronic white matter ischemic changes. Periventricular leukomalacia. Normal bilateral basal ganglia. Normal thalami. There is no extra-axial fluid accumulation. Normal flow voids within the major intracranial circulation suggesting patency by spin echo criteria. Normal venous enhancement. There is no enhancing intra-axial or extra-axial abnormality. Normal sella turcica, pituitary gland, infundibular stalk, optic chiasm and hypothalamus. Normal tectal plate and pineal gland. Normal midbrain, pierre and medulla. There is a retrocerebellar CSF fluid collection, without a mass effect upon the vermis, consistent with a himanshu-cisterna magna. Normal basal cisterns. Normal bilateral temporal bones. Normal bilateral internal auditory canals. No demonstrated orbital abnormality, within the constraints of a routine brain study. Normal visualized paranasal sinuses. Normal calvarium and skull base. Normal visualized soft tissue structures. Normal visualized upper cervical spine. MRI/Brain W/WO Contrast IMPRESSION: No evidence of infarct or hemorrhage. 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 Electronically Signed: Rosalio Francis MD at 11:11 EDT Tel , Service support ,
== END | disposition home or self-care (01) ==
PROVIDERS: Family Provider Internal Medicine; PCP Internal Medicine; Referring Provider Psychiatry & Neurology Neurology; Visit Provider Psychiatry & Neurology Neurology
DX: R51 Headache (principal)
CPT/HCPCS: 70553; A9575

== ENCOUNTER 2019-02-13 08:38 | Emergency (ER) | payer MEDICARE, SELFPAY ==
[2018-10-04 18:45] VITALS: BMI 28.2
[2019-02-13 08:39] VITALS: BP 152/86; PULSE 90; RESP 16; TEMP 36.1; O2SAT 93; BMI 31.6
--- NOTE | 2019-02-13 09:08 | ED.VISSUMM ---
- ER Visit Summary Date of Service: 02/13/19 Chief Complaint: Nausea, vomiting, and diarrhea History of Present Illness: The patient is a 83 F who presents with nausea, vomiting, and diarrhea that began yesterday. Patient has been nauseated for the past several days after starting valacyclovir for shingles. Patient started having vomiting last night. Patient denies any hematemesis or coffee-ground emesis. Patient has been having loose and watery diarrhea. Patient denies any melena or hematochezia. Patient denies any dysuria or hematuria. Patient admits to subjective fevers and sweats. Patient also admits to cough. Patient denies any sputum production. Physical Examination: Vital signs are stable. Patient is afebrile. Patient is in no acute distress. Oral mucosa is pink and moist. Neck is supple. Trachea is midline. There is no JVD. Heart was regular rate and rhythm. Lungs are clear and equal bilaterally. Abdomen is soft. Bowel sounds are normal. There is no tenderness. Skin is warm and dry. There is an erythematous macular rash over the left T4 dermatome. There are no vesicles noted. Cranial nerves II through XII are intact. There are no focal motor or sensory deficits noted. Test Results: CBC and basic metabolic profile were normal. Urinalysis shows leukocyte esterase of 100 with positive nitrates and 10-25 white blood cells. Emergency Department Course and Treatment: Patient was given IV fluids and Zofran. There was a delay in obtaining labs. Patient was difficult to draw labs from. Patient was given her first dose of Bactrim here. Patient was given a prescription for Bactrim. Patient was also given a prescription for Phenergan. Daughter states patient has Zofran but it is not helping. Daughter also stated that the patient had some redness to the left lateral eye. There is a sub-conjunctiva hemorrhage over the superior lateral aspect of the left eye. Disposition: Discharge home Impression: Urinary tract infection This note was generated with [employer] dictation software. It may contain incorrect words, spelling, and punctuation that were not noted in review of the chart prior to signing ED Disposition - Plan for ED Patient: Disposition: Home or Assisted Living Diagnosis: Urinary tract infection Instructions: Bladder Infection, Female (Adult) Prescriptions: Smz/Tmp Ds [Bactrim Ds] 1 tab PO BID #6 tab Prescription Printed proMETHazine suppository [Phenergan Suppository] 25 mg RECTAL Q6H PRN PRN #6 suppos. PRN Reason: Nausea Prescription Printed Referrals: Gold Marrero MD [Primary Care Provider] - 3-5 Days
[2019-02-13] MEDS: 0.9% Normal Saline 1,000 ML 1000 ML IV (09:25)
[2019-02-13] MEDS: Ondansetron 4 MG/2 ML Vial IV (09:30)
[2019-02-13 10:23] VITALS: BP 149/84; PULSE 76; RESP 16; TEMP 36.4; O2SAT 92
[2019-02-13 12:19] VITALS: BP 154/78; PULSE 74; RESP 18; TEMP 36.6; O2SAT 99
[2019-02-13 12:26] LABS: Absolute Lymphocyte Count 1.93 X10^3/uL (0.83-4.51); Absolute Neutrophil Count 8.5 X10^3/uL (2.0-7.7); Basophil# 0.05 X10^3/uL; Basophil% 0.5 % (0-1); Eosinophil# 0.01 X10^3/uL; Eosinophils% 0.1 % (0-5); Hematocrit 47.9 % (37-47); Hemoglobin 15.9 g/dL (12.0-15.0); Lymphocyte # 1.93 X10^3/ul (4.0); Lymphocyte % 17.8 % (19-41); Mean Corp Hgb Conc 33.2 g/dL (32-36); Mean Corpuscular Hgb 29.1 pg (27.0-32.0); Mean Corpuscular Volume 87.6 fL (81-99); Mean Platelet Vol. 10.2 fl (6.2-12.0); Monocyte# 0.31 X10^3/uL; Monocyte% 2.9 % (0-10); NRBC Flagged by Analyzer 0 % (0-5); Neutrophil # 8.48 X10^3/uL (2.7-7.7); Neutrophil % 78.2 % (47-70); POSITIVE MORPHOLOGY YES; Platelet Count 282 K/mm3 (150-450); RBC Distribution Width CV 12.6 % (11.6-14.6); RBC Distribution Width SD 39.9 fl (35.1-43.9); Red Blood Count 5.47 M/mm3 (4.2-5.4); White Blood Count 10.8 K/mm3 (4.4-11.0)
[2019-02-13 12:38] LABS: Differential Indicated SCAN CRITERIA MET
[2019-02-13 12:41] LABS: Mucous, Urine 0 SEEN /hpf (<or=2+)
[2019-02-13] MEDS: Acetaminophen 500 MG Tablet 1000 MG PO (12:47)
[2019-02-13 12:50] LABS: Anion Gap 10 (5-15); BUN 7 mg/dL (7-18); BUN/Creat Ratio 9.4 RATIO (10-20); Chloride 105 mmol/L (98-107); Creatinine, Serum 0.75 mg/dL (0.55-1.02); EST Glomerular Filtration Rate 79 mL/min (>60); Est Glom Filt Rate - Afr Amer 96 mL/min (>60); Glucose 96 mg/dL (74-106); Potassium 4.5 mmol/L (3.5-5.1); Sodium Level 138 mmol/L (136-145)
[2019-02-13 12:54] LABS: Color, Urine Yellow (Yellow); Glucose, Dipstick Normal (Normal); Ketone-Dipstick 15 mg/dl (Negative); Leukocyte Esterase-Dipstick 100 /ul (Negative); Nitrite-Dipstick Positive (Negative); Occult Blood-Urine 25 /ul (Negative); Protein-Dipstick 30 mg/dl (Negative); Specific Gravity, Urine 1.015 (1.002-1.030); Urine Bilirubin Dipstick Negative (Negative); Urine Clarity Sl. Cloudy (Clear); Urine Urobilinogen Normal (Normal)
[2019-02-13 13:04] LABS: Platelet Estimate ADEQUATE (ADEQ); Red Cell Morphology NORM C+C NORMAL (NORM C&C)
[2019-02-13 13:16] LABS: Bacteria 2+ /hpf (None Seen); Red Blood Cells-Urine 0-5 SEEN /hpf (0-5); Squamous Epithelial Cells - UA 0-5 SEEN /hpf (5-10); White Blood Cells 10-25 SEEN /hpf (0-5)
[2019-02-13 14:32] VITALS: BP 130/82; PULSE 64; RESP 18; O2SAT 99
[2019-02-13 15:21] VITALS: BP 130/72; PULSE 78; RESP 18; O2SAT 99
[2019-02-13] MEDS: Smz/Tmp Ds Tablet 1 TABLET PO (15:23)
== END 2019-02-13 15:24 | disposition home or self-care (01) ==
PROVIDERS: Emergency Provider Emergency Medicine; Family Provider Internal Medicine; PCP Internal Medicine
DX: N39.0 Urinary tract infection, site not specified (principal); R05 Cough; R19.7 Diarrhea, unspecified; R07.9 Chest pain, unspecified; R06.00 Dyspnea, unspecified; J34.89 Other specified disorders of nose and nasal sinuses; B02.9 Zoster without complications; H11.32 Conjunctival hemorrhage, left eye; Z79.899 Other long term (current) drug therapy
CPT/HCPCS: 36415; 80048; 81001; 85025; 96361; 96374; 99285; J7030; A4216; J2405

== ENCOUNTER 2019-10-10 22:03 | Emergency (ER) | payer MEDICARE, MEDICAID, SELFPAY ==
[2019-10-10 22:03] VITALS: BP 150/80; PULSE 72; RESP 16; TEMP 36.8; O2SAT 96; BMI 27.4
--- NOTE | 2019-10-10 22:32 | ED.DCSUM_ITS ---
History of Present Illness Chief Complaint: Allergic Reaction Informant: Patient, Family Narrative: She stated she developed an allergic reaction just prior to coming in. She has some swelling to her upper lower lips. She had some welts on her back and upper thighs. She has been itching them. Her daughter gave her Benadryl. The patient stated that feels much better now. She is unsure what caused it. She did eat some cheese and an orange. She is never had a reaction like this before. She is not on any CLAIR inhibitor blood pressure medication. She is never had a history of angioedema. She denies any difficulty swallowing. She denies any breathing difficulty. Current severity is mild. Daughter brought her in for further evaluation. - Past Medical History (1) Chest pain Status: Acute (2) Dementia Status: Acute (3) Chronic diarrhea Status: Chronic (4) History of TIA (transient ischemic attack) Status: Chronic (5) IBS (irritable bowel syndrome) Status: Chronic (6) Urinary incontinence Status: Chronic Past Medical History - Allergies and Home Meds Allergies/Adverse Reactions: Allergies aspirin Adverse Reaction (Verified 10/10/19 22:05) Nausea Primary Care Physician: Gold Marrero MD [Primary Care Provider] - Prior records reviewed: Yes Past Medical History: - - see Problem list Surgical History: hysterectomy, - - s/p bladder sling surgery for urine incontinence Smoking Status: Never smoker Alcohol: None Drugs: None - Family History Maternal Family History: Reports: No pertinent history Paternal Family History: Reports: No pertinent history Review of Systems General: Denies: Chills, Fever, Sweats Eyes: Denies: Visual changes - bilaterally, Diplopia ENT: Denies: Rhinorrhea, Sore throat Cardiovascular: Denies: Chest pain, Palpitations Respiratory: Denies: Dyspnea, Cough, Dyspnea on exertion Gastrointestinal: Denies: Abdominal pain, Nausea, Vomiting, Diarrhea, Melena, Hematochezia Genitourinary: Denies: Dysuria, Hematuria, Frequency Musculoskeletal: Denies: Back pain, Extremity Pain Skin: Reports: Rash, - - Lip swelling. Denies: Wounds Neurological: Denies: Headache, Weakness, Numbness Physical Exam Vital Signs/Narrative: Vital Signs Temp Pulse Resp BP Pulse Ox 10/10/19 22:03 98.3 F 72 16 150/80 H 96 General: Well nourished, Well developed, No Acute Distress Head: Normocephalic, Atraumatic Eyes: Perrl, EOMI ENT: Moist mucous membranes, No rhinorrhea, - - And has very mild swelling to her lower lip. Upper lip appears normal. Pharyngeal exam normal. Able to swallow without problem. Neck: Supple, Nontender Cardiovascular: Regular rate, Regular rhythm, No murmurs Respiratory: No distress, CTA bilaterally, Chest nontender Abdomen: Soft, Nontender, Nondistended, Normal bowel sounds Back: Nontender, Normal Inspection Extremities: Nontender, No edema Skin: Normal color, No rash, - - No hives noted. Neurological: Alert, Oriented x3, Cranial nerves II-XII grossly intact, Normal Strength, Normal Sensation Psychological: Normal affect, Normal Mood Diagnostic/Tx/Re-eval - Medical Decision Making Patient given dose of prednisone and watch. She took a 24-hour Benadryl. She had a mild allergic reaction. She is not on CLAIR inhibitor. I have a low suspicion for angioedema. Monitored for over an hour. Her symptoms are improving. Her lip swelling has gone down even further. At this time I feel this is allergic and not a ngioedema. Given prednisone burst for the next 5 days. She will follow-up as an outpatient. Will continue Benadryl ED Disposition - Plan for ED Patient: Disposition: Psychiatric Hospital or Unit Diagnosis: Allergic reaction Instructions: ED General Allergic Reactions Prescriptions: Prednisone [Deltasone] 40 mg PO DAILY #10 tab Prescription Printed Referrals: Gold Marrero MD [Primary Care Provider] -
[2019-10-10] MEDS: predniSONE 20 MG Tablet 40 MG PO (23:19)
== END 2019-10-10 23:51 ==
PROVIDERS: Emergency Provider Emergency Medicine; PCP Internal Medicine
DX: T78.40XA Allergy, unspecified, initial encounter (principal); X58.XXXA Exposure to other specified factors, initial encounter; R07.9 Chest pain, unspecified; K58.0 Irritable bowel syndrome with diarrhea; R32 Unspecified urinary incontinence; F03.90 Unspecified dementia, unspecified severity, without behavioral disturbance, psychotic disturbance, mood disturbance, and anxiety; Z79.899 Other long term (current) drug therapy; Z88.6 Allergy status to analgesic agent; Z86.73 Personal history of transient ischemic attack (TIA), and cerebral infarction without residual deficits; Z90.710 Acquired absence of both cervix and uterus
CPT/HCPCS: 99283

== ENCOUNTER 2019-11-30 13:49 | Emergency (ER) | payer MEDICARE, MEDICAID, SELFPAY ==
[2019-11-30 13:52] VITALS: BP 146/118; PULSE 75; RESP 18; TEMP 36.4; O2SAT 96; BMI 28.3
--- NOTE | 2019-11-30 14:22 | ED.VIS.DENTA ---
History of Present Illness <Calvin Alexander - Last Filed: 11/30/19 14:36> Informant: Patient, Family Onset: Days - 10 days Context: Gradual Onset Timing: Continuous Quality: Aching Location: Left lower gumline Current Severity: Severe Maximum Severity: Severe Worsened by: Eating Relieved by: NSAIDs Narrative: 84-year-old female history of hypertension and dementia presents with left lower dental pain. She had a dental extraction 10 days ago. Since that time her wound has been slow to heal. She has been to the dentist 3 times over the past week to have sutures placed where the extraction was done but she continues to ruptured the sutures and the wound is open. Her daughter who brings the patient in today states the dentist told her she is not sure what to do with her anymore and referred her to an oral surgeon she is an appointment on Monday in 48 hours. She is eating and drinking normally. No fevers or facial swelling. She is on amoxicillin and hydrocodone. She is intermixing ibuprofen with that. Prior similar symptoms: Yes Recent Illness/Hospitalization: No <Дмитрий Nagy - Last Filed: 11/30/19 14:40> Chief Complaint: Dental Past Medical History <Calvin Alexander - Last Filed: 11/30/19 14:36> Prior records reviewed: Yes Past Medical History: - - Dementia hypertension hyperlipidemia GERD Surgical History: hysterectomy, - - s/p bladder sling surgery for urine incontinence Lives: With Family Smoking Status: Former smoker Alcohol: None Drugs: None - Family History Maternal Family History: Reports: No pertinent history Paternal Family History: Reports: No pertinent history <Дмитрий Nagy - Last Filed: 11/30/19 14:40> - Allergies and Home Meds Allergies/Adverse Reactions: Allergies aspirin Adverse Reaction (Verified 11/30/19 13:56) Nausea Primary Care Physician: Gold Marrero MD [Primary Care Provider] - Review of Systems All systems negative except as indicated General: Denies: Chills, Fever, Sweats Eyes: Denies: Visual changes - bilaterally, Diplopia ENT: Reports: - - Dental pain. Denies: Rhinorrhea, Sore throat Cardiovascular: Denies: Chest pain, Palpitations Respiratory: Denies: Dyspnea, Cough, Dyspnea on exertion Gastrointestinal: Denies: Abdominal pain, Nausea, Vomiting, Diarrhea, Melena, Hematochezia Genitourinary: Denies: Dysuria, Hematuria, Frequency Musculoskeletal: Denies: Back pain, Extremity Pain Skin: Denies: Rash, Wounds Neurological: Denies: Headache, Weakness, Numbness <Дмитрий Nagy - Last Filed: 11/30/19 14:40> Physical Exam Vital Signs/Narrative: Vital Signs Temp Pulse Resp BP Pulse Ox 11/30/19 14:24 97.5 F L 75 18 146/118 H 96 11/30/19 13:52 97.5 F L 75 18 146/118 H 96 <Calvin Alexander - Last Filed: 11/30/19 14:36> Vital Signs/Narrative: Vital Signs Temp Pulse Resp BP Pulse Ox 11/30/19 13:52 97.5 F L 75 18 146/118 H 96 Inital Vital Signs reviewed: Yes General: Well nourished, Well developed Head: Normocephalic, Atraumatic ENT: Moist mucous membranes, No rhinorrhea, TM's clear Mouth/Throat: Normal inspection lips/gums, Normal oral mucosa, No focal abscess, Normal posterior oropharynx, No sublingual edema, Focal dental decay, Focal gum swelling - Focal gum swelling on her left lower lateral incisor and behind where the tooth was removed. There is an healing area where that tooth was removed. There is no abscess there is no drainage she has no sublingual edema there is no trismus her submental space is soft her voice is normal airway is normal and intact. Negative for: Dental avulsion, Dentral fracture, Trismus Neck: Supple, No lymphadenopathy, Nontender, No JVD Cardiovascular: Regular rate, Regular rhythm, No murmurs Respiratory: No distress, CTA bilaterally, Chest nontender Abdomen: Soft, Nontender, Nondistended, Normal bowel sounds Back: Nontender, Normal Inspection Extremities: Nontender, No edema Skin: Normal color, No rash Neurological: Alert, Oriented x3, Cranial nerves II-XII grossly intact, Normal Strength, Normal Sensation Psychological: Normal affect <Дмитрий Nagy - Last Filed: 11/30/19 14:40> Diagnostic/Tx/Re-eval - Medical Decision Making Patient was seen with Дмитрий agree with history and physical as above, she has basically extraction site left lower incisor area there is no active infection drainage foul odor for the mouth tongue unremarkable neck unremarkable This is a chronic issue poor healing post disc extraction they have been referred to oral surgery, taking antibiotics nonsteroidals we will add Percocet and she will follow-up with her outpatient oral surgery providers see the note for full details <Pranayann mariemacrinaakhilCalvin - Last Filed: 11/30/19 14:36> - Medical Decision Making Patient presents with postoperative pain from a tooth extraction and delayed wound healing. There is no evidence of acute infection. Overall the patient appears well the patient is breathing normally she is able to eat and drink normally her main issue today is pain in his she is almost out of her hydrocodone. We will prescribe her Percocet she will continue her antibiotic she will continue ibuprofen and follow-up on Monday in 48 hours with oral surgery <Дмитрий Nagy - Last Filed: 11/30/19 14:40> ED Disposition <Colt Alexandertamragail - Last Filed: 11/30/19 14:36> <Дмитрий Nagy - Last Filed: 11/30/19 14:40> - Plan for ED Patient: Disposition: Home or Assisted Living Diagnosis: Pain, dental, S/P tooth extraction Instructions: ED Tooth Pain Prescriptions: Amoxicillin 500 mg PO TID #30 tab Prescription Printed Oxycodone HCl/Acetaminophen [Percocet 5/325] 1 tab PO Q6H PRN PRN 3 Days #12 tab PRN Reason: Pain Prescription Printed Referrals: Gold Marrero MD [Primary Care Provider] - Humberto Guido DDS [STAFF PHYSICIAN] - As soon as possible
[2019-11-30 14:24] VITALS: BP 146/118; PULSE 75; RESP 18; TEMP 36.4; O2SAT 96
[2019-11-30] MEDS: oxyCODONE 5 MG Tablet PO (15:17)
[2019-11-30 15:21] VITALS: BP 135/95; PULSE 81; RESP 18; O2SAT 98
== END 2019-11-30 15:24 | disposition home or self-care (01) ==
PROVIDERS: Emergency Provider Physician Assistant Medical; PCP Internal Medicine
DX: G89.18 Other acute postprocedural pain (principal); K08.89 Other specified disorders of teeth and supporting structures; I10 Essential (primary) hypertension; E78.5 Hyperlipidemia, unspecified; K21.9 Gastro-esophageal reflux disease without esophagitis; F03.90 Unspecified dementia, unspecified severity, without behavioral disturbance, psychotic disturbance, mood disturbance, and anxiety; Z79.52 Long term (current) use of systemic steroids; Z79.899 Other long term (current) drug therapy; Z98.818 Other dental procedure status; Z88.6 Allergy status to analgesic agent; Z87.891 Personal history of nicotine dependence
CPT/HCPCS: 99283

== ENCOUNTER → 2020-07-20 14:13 | Outpatient (CLI) | payer MEDICARE, MEDICAID, SELFPAY ==
--- NOTE | 2020-07-20 14:16 | CT_ITS ---
STUDY: CT BRAIN WITHOUT CONTRAST REASON FOR EXAM: Female, 84 years old. Headaches x7 years RADIATION DOSAGE (If Supplied By Facility): CTDIvol = ( ) mGy, DLP = ( ) mGycm TECHNIQUE: Transaxial CT imaging of the brain was performed without administration of intravenous contrast material. Individualized dose optimization techniques were used for this CT. COMPARISON: 10/11/2018 FINDINGS: Normal soft tissue structures. Normal calvarium. Normal size ventricles and extra-axial spaces for the patient''s age. There are areas of decreased attenuation within the white matter tracts of the supratentorial brain, consistent with microvascular disease changes. 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 Normal brainstem. Normal cerebellum. 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 There is no intracranial hemorrhage. There are no findings of an acute ischemic infarction. Normal visualized paranasal sinuses. CT/Brain/Head without Contrast IMPRESSION: Chronic involutional changes of the brain. No acute hemorrhage Electronically Signed: Wilfred Juares MD at 19:37 EST , Service support ,
== END ==
PROVIDERS: PCP Internal Medicine; Referring Provider Psychiatry & Neurology Neurology; Visit Provider Psychiatry & Neurology Neurology
DX: G43.009 Migraine without aura, not intractable, without status migrainosus (principal)
CPT/HCPCS: 70450

== ENCOUNTER 2020-09-26 10:28 | Inpatient (IN) | payer MEDICARE, MEDICAID, SELFPAY ==
[2020-09-26] VITALS (7 sets, daily range): BP systolic 127–149; BP diastolic 25–73; PULSE 70–96; RESP 18–20; TEMP 36.6–37.7; O2SAT 92–97; BMI 29.2; BMI 26.9; BMI 27.0
--- NOTE | 2020-09-26 10:47 | ED.DCSUM_ITS ---
History of Present Illness Chief Complaint: Nausea/Vomiting/Diarrhea Informant: Patient, Family Onset: Weeks Context: Gradual Onset Current Severity: Moderate Maximum Severity: Moderate Narrative: Patient presents with daughter for evaluation of nausea, vomiting, and diarrhea. Daughter states is been ongoing for about 3 weeks. She was prescribed amoxicillin for a UTI about 2-1/2 weeks ago. Daughter states the antibiotic was too strong for her and she is not been able to complete it. She continues to have vomiting and diarrhea. No fever or chills. Daughter states she has not been able to take in any food or drink for the last 3 days. - Past Medical History (1) Dementia Status: Chronic (2) History of TIA (transient ischemic attack) Status: Chronic (3) IBS (irritable bowel syndrome) Status: Chronic Past Medical History - Allergies and Home Meds Allergies/Adverse Reactions: Allergies aspirin Adverse Reaction (Verified 09/26/20 10:29) Nausea Primary Care Physician: Gold Marrero MD [Primary Care Provider] - Surgical History: hysterectomy, - - s/p bladder sling surgery for urine incontinence Lives: With Family Smoking Status: Former smoker - Family History Maternal Family History: Reports: No pertinent history Paternal Family History: Reports: No pertinent history Review of Systems General: Denies: Chills, Fever Eyes: Denies: Visual changes - bilaterally ENT: Denies: Bilateral ear pain Cardiovascular: Denies: Chest pain Respiratory: Denies: Dyspnea, Cough Gastrointestinal: Reports: Nausea, Vomiting, Diarrhea. Denies: Abdominal pain Musculoskeletal: Reports: Back pain Hematologic: Denies: Easy bruising, Easy bleeding Allergy: Denies: Uticaria Physical Exam Vital Signs/Narrative: Vital Signs Temp Pulse Resp BP Pulse Ox 09/26/20 10:29 97.9 F 75 19 H 136/65 H 92 Inital Vital Signs reviewed: Yes General: Well nourished, Well developed ENT: Dry mucous membranes - Mildly dry mucous membranes Cardiovascular: Regular rate, Regular rhythm Respiratory: No distress, CTA bilaterally Abdomen: Soft, Nontender, Normal bowel sounds Extremities: Nontender Skin: Normal color, No rash Neurological: Alert, - - History largely provided by daughter at bedside secondary to patient's dementia. No focal neurologic deficits. Psychological: Normal affect Diagnostic/Tx/Re-eval Chest X-Ray - ED: 1 View, Read by ED Physician, Right Infiltrate Impressions Chest X-Ray 09/26/20 11:37 IMPRESSION: Right upper lobe pneumonia. Electronically Signed: Benedicto Juárez MD at 12:35 EDT Tel , Service support , 09/26/20 11:37 Chest 1 View (Portable) [RAD] Stat Laboratory Results 09/26/20 09/26/20 09/26/20 11:00 11:00 11:15 WBC 4.4 RBC 5.11 Hgb 15.1 H Hct 45.2 MCV 88.5 MCH 29.5 MCHC 33.4 RDW Std Deviation 41.6 RDW Coeff of Eamon 12.7 Plt Count 223 MPV 10.0 Immature Gran % (Auto) 0.200 Neut % (Auto) 64.0 Lymph % (Auto) 27.7 Callahan % (Auto) 7.7 Eos % (Auto) 0.2 Baso % (Auto) 0.2 Absolute Neuts (auto) 2.8 Absolute Lymphs (auto) 1.23 Nucleated RBC % 0 Sodium 130 L Potassium 3.4 L Chloride 96 L Carbon Dioxide 24.0 Anion Gap 10 BUN 10 Creatinine 0.87 Estim Creat Clear Calc 41.24 Est GFR (MDRD) Af Amer 80 Est GFR (MDRD) Non-Af 66 BUN/Creatinine Ratio 11.5 Glucose 111 H Calcium 8.6 Total Bilirubin 0.60 Direct Bilirubin 0.14 AST 50 H ALT 60 H Alkaline Phosphatase 133 H Total Protein 7.8 Albumin 3.7 Globulin 4.1 Urine Color Urine Clarity Urine pH Ur Specific [place] Urine Protein Urine Glucose (UA) Urine Ketones Urine Occult Blood Urine Nitrite Urine Bilirubin Urine Urobilinogen Ur Leukocyte Esterase Urine RBC Urine WBC Ur Squamous Epith Cells Urine Bacteria Urine Mucus COVID-19 (CHE) Not Detected 09/26/20 14:00 WBC RBC Hgb Hct MCV MCH MCHC RDW Std Deviation RDW Coeff of Eamon Plt Count MPV Immature Gran % (Auto) Neut % (Auto) Lymph % (Auto) Callahan % (Auto) Eos % (Auto) Baso % (Auto) Absolute Neuts (auto) Absolute Lymphs (auto) Nucleated RBC % Sodium Potassium Chloride Carbon Dioxide Anion Gap BUN Creatinine Estim Creat Clear Calc Est GFR (MDRD) Af Amer Est GFR (MDRD) Non-Af BUN/Creatinine Ratio Glucose Calcium Total Bilirubin Direct Bilirubin AST ALT Alkaline Phosphatase Total Protein Albumin Globulin Urine Color Yellow Urine Clarity Sl. Cloudy Urine pH 6.0 Ur Specific [place] 1.015 Urine Protein 15 H Urine Glucose (UA) Normal Urine Ketones 50 H Urine Occult Blood 10 H Urine Nitrite Negative Urine Bilirubin Negative Urine Urobilinogen Normal Ur Leukocyte Esterase Negative Urine RBC 0 SEEN Urine WBC 0 SEEN Ur Squamous Epith Cells 5-10 SEEN Urine Bacteria 0 SEEN Urine Mucus 0 SEEN COVID-19 (CHE) - Medical Decision Making Patient was given Zofran and IV fluids. Potassium does relieve her in low and she is given 40 mEq IV replacement. Covid PCR test is negative. Urinalysis shows no sign of acute infection. At this time patient has not been able to tolerate her p.o. medications. I do feel she would benefit from overnight observation for electrolyte correction, hydration, and ensuring that she is able to tolerate p.o. I will speak with the hospitalist. ED Disposition - Plan for ED Patient: Disposition: Acute Care Hospital [facility] Diagnosis: Gastroenteritis, Pneumonia, Hypokalemia, Hyponatremia Referrals: Gold Marrero MD [Primary Care Provider] -
[2020-09-26] MEDS: Ondansetron 4 MG/2 ML Vial IV ×2 (11:00→15:10)
[2020-09-26] MEDS: 0.9% Normal Saline 1,000 ML 1000 ML IV (11:00)
[2020-09-26 11:09] LABS: Absolute Lymphocyte Count 1.23 X10^3/uL (0.83-4.51); Absolute Neutrophil Count 2.8 X10^3/uL (2.0-7.7); Basophil# 0.01 X10^3/uL; Basophil% 0.2 % (0-1); Eosinophil# 0.01 X10^3/uL; Eosinophils% 0.2 % (0-5); Hematocrit 45.2 % (37-47); Hemoglobin 15.1 g/dL (12.0-15.0); Lymphocyte # 1.23 X10^3/ul (4.0); Lymphocyte % 27.7 % (19-41); Mean Corp Hgb Conc 33.4 g/dL (32-36); Mean Corpuscular Hgb 29.5 pg (27.0-32.0); Mean Corpuscular Volume 88.5 fL (81-99); Monocyte# 0.34 X10^3/uL; Monocyte% 7.7 % (0-10); NRBC Flagged by Analyzer 0 % (0-5); Neutrophil # 2.84 X10^3/uL (2.7-7.7); Platelet Count 223 K/mm3 (150-450); RBC Distribution Width CV 12.7 % (11.6-14.6); RBC Distribution Width SD 41.6 fl (35.1-43.9); Red Blood Count 5.11 M/mm3 (4.2-5.4); White Blood Count 4.4 K/mm3 (4.4-11.0)
[2020-09-26 11:24] LABS: AST(SGOT) 50 U/L (15-37); Alanine Aminotransfer ALT/SGPT 60 U/L (13-56); Albumin, Serum 3.7 g/dL (3.2-5.0); Alkaline Phosphatase 133 U/L (45-117); Anion Gap 10 (5-15); BUN 10 mg/dL (7-18); BUN/Creat Ratio 11.5 RATIO (10-20); Bilirubin, Direct 0.14 mg/dL (0.00-0.30); Calcium,Total 8.6 mg/dL (8.5-10.1); Chloride 96 mmol/L (98-107); Creatinine, Serum 0.87 mg/dL (0.55-1.02); EST Glomerular Filtration Rate 66 mL/min (>60); Est Glom Filt Rate - Afr Amer 80 mL/min (>60); Estimated Creatinine Clearance 41.24 ml/min; Globulin 4.1 g/dL (2.2-4.2); Glucose 111 mg/dL (74-106); Potassium 3.4 mmol/L (3.5-5.1); Protein, Total 7.8 g/dL (6.4-8.2); Sodium Level 130 mmol/L (136-145)
--- NOTE | 2020-09-26 11:37 | RAD_ITS ---
STUDY: X-RAY CHEST REASON FOR EXAM: Female, 84 years old. cough TECHNIQUE: Single AP portable view of the chest. COMPARISON: 10/04/2018 FINDINGS: Alveolar opacity in the upper right lung consistent with right upper lobe pneumonia. Elevated right hemidiaphragm. Normal size heart. Normal mediastinum and sharon. Normal visualized pulmonary arteries. Normal visualized aortic arch and descending thoracic aorta. Normal visualized thoracic spine. Normal visualized ribs, clavicles, and shoulders. There is no demonstrated abnormality of the visualized soft tissue structures of the upper abdomen. RAD/Chest 1 View (Portable) IMPRESSION: Right upper lobe pneumonia. Electronically Signed: Benedicto Juárez MD at 12:35 EDT Tel , Service support ,
[2020-09-26 14:06] LABS: Bacteria 0 SEEN /hpf (None Seen); Color, Urine Yellow (Yellow); Glucose, Dipstick Normal (Normal); Ketone-Dipstick 50 mg/dl (Negative); Leukocyte Esterase-Dipstick Negative /ul (Negative); Mucous, Urine 0 SEEN /hpf (<or=2+); Nitrite-Dipstick Negative (Negative); Occult Blood-Urine 10 /ul (Negative); Protein-Dipstick 15 mg/dl (Negative); Red Blood Cells-Urine 0 SEEN /hpf (0-5); Specific Gravity, Urine 1.015 (1.002-1.030); Urine Bilirubin Dipstick Negative (Negative); Urine Clarity Sl. Cloudy (Clear); Urine Urobilinogen Normal (Normal); White Blood Cells 0 SEEN /hpf (0-5)
[2020-09-26 14:13] LABS: Squamous Epithelial Cells - UA 5-10 SEEN /hpf (5-10)
--- NOTE | 2020-09-26 14:15 | ED.RN ---
second line strated for potassium infusion
[2020-09-26] MEDS: Ceftriaxone 1 GM/50 ML BAG IV (14:18)
--- NOTE | 2020-09-26 14:30 | ED.RN ---
pt reports iv to rt wrist is bothering her, holding potassium until antibiotics are infusing in remaining iv
--- NOTE | 2020-09-26 15:15 | HP.PCM_ITS ---
History of Present Illness Date of Admission: 09/26/20 Chief Complaint: nausea, weakness The patient is a 84 year old F with a past medical history as outlined was admitted through the ED on 09/26/2020 with a complaint of weakness and nausea. Patient has dementia and lives with her daughter. She tells me that about a week ago, she was diagnosed with a urine tract infection and was put on p.o. amoxicillin by her PCP. However she felt the medication was too strong for her so she has not really been taking it. Subsequently developed nausea. Nausea has been persistent and has not been able to keep down any food or fluids. She has progressively gotten weaker so family decided to bring her into the ED t vinnie. Vitals in the ED show temperature of 97.9 with blood pressure 136/65, pulse rate of 75 respiratory of 19. She was saturating at 92% on room air. Chemistry showed sodium of 130 with potassium of 3.4 and chloride of 96 as well as bicarb of 24. CBC was essentially unremarkable with hemoglobin of 15 and WBC of 4.4. Platelets were 223. Chest x-ray showed alveolar opacity in the right upper lung consistent with right upper lobe pneumonia. She has been admitted to be managed for debility and intractable nausea. Past Medical History Past Medical History (Chronic Problems): Chronic Problems Dementia (Chronic) Chronic diarrhea (Chronic) Urinary incontinence (Chronic) History of TIA (transient ischemic attack) (Chronic) IBS (irritable bowel syndrome) (Chronic) Allergies aspirin Adverse Reaction (Verified 09/26/20 10:29) Nausea Home Medications: Ambulatory Orders Medication Instructions Recorded Pantoprazole Sodium [Protonix] 40 mg PO DAILY 09/11/13 Acetaminophen [Tylenol] 1,000 mg PO Q8H PRN 10/04/18 Donepezil HCl [Aricept] 5 mg PO QHS 10/04/18 Memantine Hydrochloride [Namenda] 10 mg PO DAILY 10/04/18 Prednisone 20 mg PO TID 10/04/18 Atorvastatin Calcium 40 mg PO DAILY #30 tablet 10/05/18 Smz/Tmp Ds [Bactrim Ds] 1 tab PO BID #6 tab 02/13/19 proMETHazine suppository 25 mg RECTAL Q6H PRN PRN #6 suppos. 02/13/19 [Phenergan Suppository] Prednisone [Deltasone] 40 mg PO DAILY #10 tab 10/10/19 Amoxicillin 500 mg PO TID #30 tab 11/30/19 Surgical History: hysterectomy, - - s/p bladder sling surgery for urine incontinence Psychiatric History: No pertinent psych hx [employer] History: No pertinent [employer] history Lives: With Family Smoking Status: Former smoker Alcohol: None Drugs: None - *Family History Maternal History Items: No pertinent history Paternal History Items: No pertinent history Review of Systems Constitutional: Reports: Anorexia, Malaise, Weakness, Fatigue. Denies: Chills, Fever Eyes: Denies: Blurred vision HEENT: Denies: Head Aches, Sinus Congestion, Sinus Drainage Cardiovascular: Denies: Chest Pain, Palpitations Respiratory: Denies: Cough, Shortness of Breath, Shortness of breath at rest, Shortness of breath upon exertion, Sputum production, Wheezing Gastrointestinal: Reports: Nausea. Denies: Abdominal Pain, Diarrhea, Dyspepsia, Vomiting Genitourinary: Denies: Dysuria Musculoskeletal: Denies: Joint Pain, Joint Tenderness Skin: Denies: Rash, Wounds Neurological: Denies: Numbness, Tingling, Focal weakness Psychiatric: Denies: Anxiety, Depression, Homicidal Ideations, Suicidal Ideations Hematologic/ Lymphatic: Denies: Easy Bruising, Easy Bleeding VTE Information - Inpt Only VTE Present on Admission: No VTE Pharm Prophylaxis ordered?: Yes Patient Problems: Active and Suspected Problems Gastroenteritis (Acute) Pneumonia (Acute) Hypokalemia (Acute) Hyponatremia (Acute) - Physical Exam Vitals/I&O's: Vital Signs Temp Pulse Resp BP Pulse Ox 97.9 F 70 18 141/68 H 96 09/26/20 10:29 09/26/20 15:11 09/26/20 15:11 09/26/20 15:11 09/26/20 15:11 Oxygen Delivery Method Room Air Weight: 165 lb Body Mass Index (BMI) 29.2 Intake and Output for Last 24 Hours 09/24/20 09/25/20 09/26/20 23:59 23:59 23:59 Intake Total 50 / 50 Balance 50 / 50 General: Alert, Oriented x3, Cooperative, No apparent distress HEENT: Atraumatic, PERRLA, EOMI, Normocephalic Oral: Dry Mucosa Neck: Supple, No JVD, Negative Carotid Bruits Lungs: Clear to auscultation, Normal air movement, No rhonchi, No wheeze, No rales Cardiovascular: Regular rate, Regular Rhythm, Normal S1, Normal S2, No murmurs Abdomen: Bowel Sounds Present, Soft, Non Tender, Non-Distended, No Hepato- splenomegaly Extremities: No clubbing, No cyanosis, No edema, Capillary Refill Less than 3 Seconds Skin: No rashes, No breakdown Musculoskeletal: No Tenderness to Palpation of Joints or Extremities Lymphatic: No Cervical, Supraclavicular, or Inguinal Adenopathy Neurological: Cranial nerves II-XII grossly intact, Neuro grossly intact, Motor Exam 5/5 strength throughout Psych/Mental Status: Normal Affect, Appropriate, Alert and oriented to time, place, person, mood and affect Laboratory Results 09/26/20 11:00: WBC 4.4, RBC 5.11, Hgb 15.1 H, Hct 45.2, MCV 88.5, MCH 29.5, MCHC 33.4, RDW Std Deviation 41.6, RDW Coeff of Eamon 12.7, Plt Count 223, MPV 10.0, Immature Gran % (Auto) 0.200, Neut % (Auto) 64.0, Lymph % (Auto) 27.7, Chase % (Auto) 7.7, Eos % (Auto) 0.2, Baso % (Auto) 0.2, Absolute Neuts (auto) 2.8, Absolute Lymphs (auto) 1.23, Nucleated RBC % 0 09/26/20 11:00: Sodium 130 L, Potassium 3.4 L, Chloride 96 L, Carbon Dioxide 24.0, Anion Gap 10, BUN 10, Creatinine 0.87, Estim Creat Clear Calc 41.24, Est GFR (MDRD) Af Amer 80, Est GFR (MDRD) Non-Af 66, BUN/Creatinine Ratio 11.5, Glucose 111 H, Calcium 8.6, Total Bilirubin 0.60, Direct Bilirubin 0.14, AST 50 H, ALT 60 H, Alkaline Phosphatase 133 H, Total Protein 7.8, Albumin 3.7, Globulin 4.1 09/26/20 11:15: COVID-19 (CHE) Not Detected 09/26/20 14:00: Urine Color Yellow, Urine Clarity Sl. Cloudy, Urine pH 6.0, Ur Specific [place] 1.015, Urine Protein 15 H, Urine Glucose (UA) Normal, Urine Ketones 50 H, Urine Occult Blood 10 H, Urine Nitrite Negative, Urine Bilirubin Negative, Urine Urobilinogen Normal, Ur Leukocyte Esterase Negative, Urine RBC 0 SEEN, Urine WBC 0 SEEN, Ur Squamous Epith Cells 5-10 SEEN, Urine Bacteria 0 SEEN, Urine Mucus 0 SEEN Diagnostic Data Chest X-Ray 09/26/20 11:37 IMPRESSION: Right upper lobe pneumonia. Electronically Signed: Benedicto Juárez MD at 12:35 EDT Tel , Service support , Current Medications Potassium Chloride () 10 meq in 100 mls @ 100 mls/hr IV BOLUS Q1H MARILIA Stop: 09/26/20 16:29 Assessment/Plan All Active Problems Chest pain (Acute) Gastroenteritis (Acute) Pneumonia (Acute) Hypokalemia (Acute) Hyponatremia (Acute) 84-year-old admitted with a complaint of nausea and weakness. #Debility due to recent UTI with intractable nausea * Admit to [facility] * PT OT consult. Fall precautions. * Hydrate with IV fluids. * IV Zofran as needed for nausea. * #Intractable nausea * She has no vomiting. Urinalysis showed no evidence of UTI so we will hold off on antibiotics for now. * IV Zofran as needed. Been hydrated with IV fluids. * Chest x-ray was read as right upper lobe pneumonia. I reviewed chest x-ray and I am not very convinced that patient has pneumonia. In addition, she does not have any fever, chills or any shortness of breath and has no cough no elevated white cell count. I will therefore hold off on antibiotics for now as I do not have any convincing evidence of pneumonia. * #Hypokalemia: Potassium is 3.4. Will replace and trend. #Hyperlipidemia: On statin #Dementia: On donepezil and memantine DVT prophylaxis: Lovenox Code status: full code * Patient counseled extensively about different types of CODE STATUS including full code, DNR CCA and DNR CCA. Patient elects to be full code, and wants everything necessary done to keep her alive. * Total anbp-nd-ctxt time 17 minutes. OBSV E&M: 64512 Initial observation care L2 Procedures: 59855 Advncd Care Plan 30 Min
[2020-09-26] MEDS: Metoclopramide 10 MG/2 ML Vial 5 MG IV (15:38)
[2020-09-26] MEDS: Potassium Chloride 10mEq/100mL 10 MEQ/100 ML IV.SOLN. 100 MEQ IV BOLUS ×4 (16:45→20:00)
[2020-09-26] MEDS: 0.9% Normal Saline 1,000 ML 125 ML IV (16:51)
[2020-09-26] MEDS: 0.9% Saline Lock 10 ML Syringe IV (16:51)
[2020-09-26] MEDS: QUEtiapine 25 MG Tablet PO (21:26)
[2020-09-26] MEDS: DULoxetine Hcl 30 MG Capsule PO (21:26)
[2020-09-27] VITALS (12 sets, daily range): BP systolic 120–135; BP diastolic 52–74; PULSE 56–85; RESP 18–20; TEMP 36.6–37.7; O2SAT 92–97
[2020-09-27] MEDS: 0.9% Normal Saline 1,000 ML 125 ML IV (00:50)
[2020-09-27 06:45] LABS: Absolute Lymphocyte Count 1.11 X10^3/uL (0.83-4.51); Absolute Neutrophil Count 2.3 X10^3/uL (2.0-7.7); Basophil# 0.01 X10^3/uL; Basophil% 0.3 % (0-1); Hematocrit 38.4 % (37-47); Hemoglobin 12.3 g/dL (12.0-15.0); Lymphocyte # 1.11 X10^3/ul (4.0); Lymphocyte % 29.4 % (19-41); Mean Corpuscular Hgb 28.7 pg (27.0-32.0); Mean Corpuscular Volume 89.7 fL (81-99); Mean Platelet Vol. 9.8 fl (6.2-12.0); Monocyte# 0.32 X10^3/uL; Monocyte% 8.5 % (0-10); NRBC Flagged by Analyzer 0 % (0-5); Neutrophil # 2.33 X10^3/uL (2.7-7.7); Neutrophil % 61.5 % (47-70); Platelet Count 188 K/mm3 (150-450); RBC Distribution Width SD 42.5 fl (35.1-43.9); Red Blood Count 4.28 M/mm3 (4.2-5.4); White Blood Count 3.8 K/mm3 (4.4-11.0)
[2020-09-27 07:04] LABS: Anion Gap 9 (5-15); BUN 7 mg/dL (7-18); BUN/Creat Ratio 10.1 RATIO (10-20); Calcium,Total 7.9 mg/dL (8.5-10.1); Chloride 104 mmol/L (98-107); EST Glomerular Filtration Rate 86 mL/min (>60); Est Glom Filt Rate - Afr Amer 104 mL/min (>60); Estimated Creatinine Clearance 39.03 ml/min; Glucose 101 mg/dL (74-106); Potassium 3.3 mmol/L (3.5-5.1); Sodium Level 132 mmol/L (136-145)
[2020-09-27] MEDS: Potassium Chloride Oral Tablet 20 MEQ 40 MEQ PO (09:01)
[2020-09-27] MEDS: DULoxetine Hcl 30 MG Capsule PO ×2 (09:02→20:52)
--- NOTE | 2020-09-27 11:59 | PN_ITS ---
Patient Problems: Active and Suspected Problems Gastroenteritis (Acute) Pneumonia (Acute) Hypokalemia (Acute) Hyponatremia (Acute) Subjective: Patient seen and examined. She feels better today. She has no complaints. Review of systems otherwise negative. She has not yet been able to tolerate a diet. She has remained hemodynamically stable. Potassium was 3.3 today. Sodium is up to 132. Vitals/I&O's: Vital Signs Temp Pulse Resp BP Pulse Ox 98 F 77 20 H 125/52 H 97 09/27/20 08:59 09/27/20 11:16 09/27/20 08:59 09/27/20 08:59 09/27/20 08:59 Oxygen Delivery Method Room Air Weight: 162 lb 0.001 oz Body Mass Index (BMI) 26.9 Intake and Output for Last 24 Hours 09/25/20 09/26/20 09/27/20 23:59 23:59 23:59 Intake Total 1946.75 / 194.75 2197.92 / 2197.92 Balance 1946.75 / 1945.75 2197.92 / 2197.92 General: Alert, Oriented x3, Cooperative, No apparent distress HEENT: Atraumatic, PERRLA, EOMI, Normocephalic Oral: Dry Mucosa Neck: Supple, No JVD, Negative Carotid Bruits Lungs: Clear to auscultation, Normal air movement, No rhonchi, No wheeze, No rales Cardiovascular: Regular rate, Regular Rhythm, Normal S1, Normal S2, No murmurs Abdomen: Bowel Sounds Present, Soft, Non Tender, Non-Distended, No Hepato- splenomegaly Extremities: No clubbing, No cyanosis, No edema, Capillary Refill Less than 3 Seconds Skin: No rashes, No breakdown Musculoskeletal: No Tenderness to Palpation of Joints or Extremities Lymphatic: No Cervical, Supraclavicular, or Inguinal Adenopathy Neurological: Cranial nerves II-XII grossly intact, Neuro grossly intact, Motor Exam 5/5 strength throughout Psych/Mental Status: Normal Affect, Appropriate, Alert and oriented to time, place, person, mood and affect Laboratory Results 09/26/20 11:15: COVID-19 (CHE) Not Detected 09/26/20 14:00: Urine Color Yellow, Urine Clarity Sl. Cloudy, Urine pH 6.0, Ur Specific [place] 1.015, Urine Protein 15 H, Urine Glucose (UA) Normal, Urine Ketones 50 H, Urine Occult Blood 10 H, Urine Nitrite Negative, Urine Bilirubin Negative, Urine Urobilinogen Normal, Ur Leukocyte Esterase Negative, Urine RBC 0 SEEN, Urine WBC 0 SEEN, Ur Squamous Epith Cells 5-10 SEEN, Urine Bacteria 0 SEEN, Urine Mucus 0 SEEN 09/27/20 06:27: WBC 3.8 L, RBC 4.28, Hgb 12.3, Hct 38.4, MCV 89.7, MCH 28.7, MCHC 32.0, RDW Std Deviation 42.5, RDW Coeff of Eamon 13.0, Plt Count 188, MPV 9.8, Immature Gran % (Auto) 0.300, Neut % (Auto) 61.5, Lymph % (Auto) 29.4, [place] % (Auto) 8.5, Eos % (Auto) 0.0, Baso % (Auto) 0.3, Absolute Neuts (auto) 2.3, Absolute Lymphs (auto) 1.11, Nucleated RBC % 0 09/27/20 06:27: Sodium 132 L, Potassium 3.3 L, Chloride 104, Carbon Dioxide 19.0 L, Anion Gap 9, BUN 7, Creatinine 0.70, Estim Creat Clear Calc 39.03, Est GFR (MDRD) Af Amer 104, Est GFR (MDRD) Non-Af 86, BUN/Creatinine Ratio 10.1, Glucose 101, Calcium 7.9 L Current Medications Acetaminophen (Acetaminophen 325 Mg Tablet) 650 mg PO Q6H PRN PRN PRN Reason: Pain Score 1-10/Temp > 100.7 F Duloxetine HCl (Duloxetine Hcl 30 Mg Capsule) 30 mg PO BID MARILIA Last Admin: 09/27/20 09:02 Dose: 30 mg Documented by: Sodium Chloride () 250 mls @ 15 mls/hr IV .[id number] PRN PRN Reason: Saline Flush Last Infusion: 09/26/20 23:45 Dose: 0 mls/hr Documented by: Sodium Chloride () 250 mls @ 15 mls/hr IV .[id number] PRN PRN Reason: Additional IVPB Infusion Nutritional Formula (Lactose Free) (Ensure Enlive 120 Ml Liquid) 120 ml PO 4X/DAY [facility] Ondansetron HCl (Ondansetron 4 Mg/2 Ml Vial) 4 mg IV Q8H PRN PRN PRN Reason: NAUSEA/VOMITING Oxycodone HCl (Oxycodone 5 Mg Tablet) 5 mg PO Q4H PRN PRN PRN Reason: Pain Score 4-10 Promethazine HCl (Promethazine 25 Mg/Ml Syringe) 25 mg IM Q6H PRN PRN PRN Reason: Breakthrough nausea/vomiting Quetiapine Fumarate (Quetiapine 25 Mg Tablet) 25 mg PO QHS MARILIA Last Admin: 09/26/20 21:26 Dose: 25 mg Documented by: Sodium Chloride (0.9% Saline Lock 10 Ml Syringe) 10 - 40 ml IV UD PRN PRN Reason: SALINE FLUSH Last Admin: 09/26/20 16:51 Dose: 10 ml Documented by: STROKE Vital Signs/Narrative: Vital Signs Temp Pulse Resp BP Pulse Ox 09/27/20 11:16 77 09/27/20 08:59 98 F 75 20 H 125/52 H 97 09/27/20 08:00 20 H 97 Medical Necessity - Tobacco Use Smoking Status: Former smoker Assessment/Plan All Active Problems Chest pain (Acute) Gastroenteritis (Acute) Pneumonia (Acute) Hypokalemia (Acute) Hyponatremia (Acute) 84-year-old admitted with a complaint of nausea and weakness. #Debility due to recent UTI with intractable nausea * being hydrated with IVF. * PT/OT on board * fall precautions * * #Intractable nausea * nausea is better today * encouraged to advance diet as tolerated * continue IV zofran prn * * #Hypokalemia: Potassium is 3.3. Will replace and trend. #Hyperlipidemia: On statin #Dementia: On donepezil and memantine DVT prophylaxis: Lovenox Code status: full code * Disposition: for likely DC home tomorrow OBSV E&M: 90145 Subsequent observation care L2
[2020-09-27] MEDS: Acetaminophen 325 MG Tablet 650 MG PO (16:45)
[2020-09-27] MEDS: QUEtiapine 25 MG Tablet PO (20:52)
[2020-09-28] VITALS (7 sets, daily range): BP systolic 131–146; BP diastolic 64–75; PULSE 77–95; RESP 16; TEMP 37.2–38.4; O2SAT 92–94
[2020-09-28 00:39] LABS: Absolute Lymphocyte Count 1.07 X10^3/uL (0.83-4.51); Absolute Neutrophil Count 3.8 X10^3/uL (2.0-7.7); Basophil# 0.01 X10^3/uL; Basophil% 0.2 % (0-1); Hematocrit 39.3 % (37-47); Lymphocyte # 1.07 X10^3/ul (4.0); Lymphocyte % 20.8 % (19-41); Mean Corp Hgb Conc 33.1 g/dL (32-36); Mean Corpuscular Hgb 29.5 pg (27.0-32.0); Mean Corpuscular Volume 89.3 fL (81-99); Mean Platelet Vol. 9.7 fl (6.2-12.0); Monocyte# 0.22 X10^3/uL; Monocyte% 4.3 % (0-10); NRBC Flagged by Analyzer 0 % (0-5); Neutrophil # 3.83 X10^3/uL (2.7-7.7); Neutrophil % 74.3 % (47-70); Platelet Count 206 K/mm3 (150-450); RBC Distribution Width CV 12.8 % (11.6-14.6); RBC Distribution Width SD 42.2 fl (35.1-43.9); White Blood Count 5.2 K/mm3 (4.4-11.0)
[2020-09-28 00:52] LABS: Anion Gap 8 (5-15); BUN 5 mg/dL (7-18); BUN/Creat Ratio 8.4 RATIO (10-20); Calcium,Total 8.4 mg/dL (8.5-10.1); Chloride 101 mmol/L (98-107); EST Glomerular Filtration Rate 102 mL/min (>60); Est Glom Filt Rate - Afr Amer 123 mL/min (>60); Estimated Creatinine Clearance 39.03 ml/min; Glucose 119 mg/dL (74-106); Potassium 3.1 mmol/L (3.5-5.1); Sodium Level 129 mmol/L (136-145)
--- NOTE | 2020-09-28 01:46 | NURSING ---
09/27 234 pt was sitting toilet with transitional care manager and charge poster by her side. pt went unresponsive. nurses' association counselor was called. pt was lowered to the ground. see nurses' association counselor paperwork
[2020-09-28] MEDS: Potassium Chloride Oral Tablet 20 MEQ 60 MEQ PO (02:31)
[2020-09-28] MEDS: Acetaminophen 325 MG Tablet 650 MG PO ×2 (02:34→20:26)
[2020-09-28 03:16] LABS: Bedside Glucose 113 mg/dL (70-110)
[2020-09-28 05:45] LABS: Absolute Lymphocyte Count 0.76 X10^3/uL (0.83-4.51); Absolute Neutrophil Count 3.1 X10^3/uL (2.0-7.7); Basophil# 0.01 X10^3/uL; Basophil% 0.2 % (0-1); Hematocrit 39.2 % (37-47); Hemoglobin 12.9 g/dL (12.0-15.0); Lymphocyte # 0.76 X10^3/ul (4.0); Lymphocyte % 18.4 % (19-41); Mean Corp Hgb Conc 32.9 g/dL (32-36); Mean Corpuscular Hgb 29.1 pg (27.0-32.0); Mean Corpuscular Volume 88.5 fL (81-99); Monocyte# 0.27 X10^3/uL; Monocyte% 6.5 % (0-10); NRBC Flagged by Analyzer 0 % (0-5); Neutrophil # 3.09 X10^3/uL (2.7-7.7); Neutrophil % 74.7 % (47-70); Platelet Count 211 K/mm3 (150-450); RBC Distribution Width CV 12.8 % (11.6-14.6); RBC Distribution Width SD 41.9 fl (35.1-43.9); Red Blood Count 4.43 M/mm3 (4.2-5.4); White Blood Count 4.1 K/mm3 (4.4-11.0)
--- NOTE | 2020-09-28 05:51 | PCM.PN.BLA ---
Progress Note CODE SARIKA called at 1145 as she went unresponsive while sitting on the toilet for urination and also had a small bowel movement. She was lowered to the floor and at that time was found to be breathing with a pulse therefore the CODE SARIKA was canceled as she had a vasovagal syncopal episode. During the episode her vital signs were normal and her blood sugar was 113. Lab work was unremarkable she had some minor electrolyte derangements which were corrected. After about 4 5 minutes she had returned to her baseline per nursing staff. We were able to get her up and she was able to move over to her bed. She was monitored periodically throughout the night and she remains stable with normal vital signs and was interactive with staff. STROKE Vital Signs/Narrative: Vital Signs Temp Pulse Resp BP Pulse Ox 09/28/20 05:37 77 09/28/20 02:28 100.4 F H 92 16 131/75 H 92
[2020-09-28 06:18] LABS: Anion Gap 8 (5-15); BUN 5 mg/dL (7-18); BUN/Creat Ratio 7.4 RATIO (10-20); Calcium,Total 8.4 mg/dL (8.5-10.1); Chloride 100 mmol/L (98-107); Creatinine, Serum 0.68 mg/dL (0.55-1.02); EST Glomerular Filtration Rate 88 mL/min (>60); Est Glom Filt Rate - Afr Amer 107 mL/min (>60); Estimated Creatinine Clearance 39.03 ml/min; Glucose 97 mg/dL (74-106); Sodium Level 131 mmol/L (136-145)
--- NOTE | 2020-09-28 06:30 | NURSING ---
Daughter Nicko notified about the events that happened tonight.
--- NOTE | 2020-09-28 07:32 | EKG12_ITS ---
Test Reason : Blood Pressure : / mmHG Vent. Rate : 078 BPM Atrial Rate : 078 BPM P-R Int : 176 ms QRS Dur : 096 ms QT Int : 374 ms P-R-T Axes : 048 -46 035 degrees QTc Int : 426 ms Normal sinus rhythm Left anterior fascicular block Anterolateral infarct , age undetermined , cannot be excluded Abnormal ECG Confirmed by YARI PAYNE, BRIAN ([id number]), editor city MONSERRAT ALLEN ([id number]) on 10/01/2020 11:26:16 AM Referred By: GRACIE Confirmed By:BRIAN GREENBERG MD
--- NOTE | 2020-09-28 08:10 | RAD_ITS ---
STUDY: X-RAY - ACUTE ABDOMINAL SERIES REASON FOR EXAM: Female, 84 years old. Intractable nausea and vomiting TECHNIQUE: Single view of the chest. Supine, and erect view(s) of the abdomen were obtained. COMPARISON: Comparison is made with prior chest radiograph dated 09/26/2020. FINDINGS: EKG electrodes are seen. Progressive right upper lobe infiltrate. Stable elevation of the right hemidiaphragm. Normal size heart. Normal mediastinum and sharon. Normal visualized pulmonary arteries. There is atherosclerotic calcification of the aortic arch with tortuosity. There is a non-specific bowel gas pattern. The soft tissue structures of the abdomen and pelvis are unremarkable. Normal visualized osseous structures. RAD/Acute Abdomen Inc Chest IMPRESSION: Progressive right upper lobe infiltrate. Electronically Signed: Asif Fiore MD at 15:12 EDT , Service support ,
--- NOTE | 2020-09-28 10:10 | CASEMGMT ---
ALONDRA LARSEN Assessment: Face to Face with pt for initial transition planning/care coordination assessment. RN CHAVA introduced self and role at [facility], pt voices understanding and consents to assessment. Pt is A/O x2 at this time. Pt able to answer some questions and stated i don't know for others. Pt gave permission to call her dtr to answer questions. TC to dtr at 1024. Care providers, pharmacy, and demographics verified/updated. Admitting Dx: debility, nausea, pna PCP: Janes Specialists: Gabby neurology [facility] Insurance: [email or web address] [facility], [facility] Community Plan Prescription Benefit: yes LW/HPOA: Pt denied having LW or DPOA and no record on file. LNOK: Dtr, Nicko Carpenter, grandson Yasir Wolf Living Arrangements: Pt lives with her daughter in a single story house with 3 steps to enter with a rail. Per dtr, pt needs full assistance with ADL's. Transportation: Pt dtr transports her to appointments. DME/HHC/SNF: Pt has a walker, BSC, w/c and grab bars. Pt has had HHC in the past. Dtr is unsure who it is through. Pt has not had any SNF stays. Pt dtr reports that at the time of call, she is in the ER and was diagnosed with COVID 19. She states she is unsure of how she is going to care for her mother. She states she has a brother, but he cannot provide all care needed. She states pt has a director of casework at [facility] through [employer] but is unsure of the name. Dtr requests this CM to call back later as she needs to figure out the plan. Pt dtr states no further concerns/needs. CM to follow with dtr regarding dc plans. Advised pt/dtr to ask CM if any further question/concerns/needs arise, voices understanding. Pt Goal: TBD due to dtr new dx of COVID 19 Plan: TBD RN CHAVA in to discuss GONZALES form with patient. RN CHAVA explained GONZALES form, patient voiced understanding. Pt signed form and filed in chart. Pt provided with a copy of signed GONZALES form. Patient had no further questions or concerns at this time. 1024- Spoke with dtr Nicko on the tc and received verbal signature of GONZALES form with a witness. Explained GONZALES form as above. Dtr had no further questions or concerns. RN CM in to discuss GONZALES form with patient. RN CHAVA explained GONZALES form, patient voiced understanding. Pt signed form and filed in chart. Pt provided with a copy of signed GONZALES form. Patient had no further questions or concerns at this time.
[2020-09-28] MEDS: DULoxetine Hcl 30 MG Capsule PO ×2 (10:14→22:16)
--- NOTE | 2020-09-28 10:45 | PCM.PN.HOSP ---
Patient Problems: Active and Suspected Problems Gastroenteritis (Acute) Pneumonia (Acute) Hypokalemia (Acute) Hyponatremia (Acute) Reason for Visit: Follow-up on debility/recent UTI Subjective: Patient was seen and examined. She denied any new complaints. Denied any dizziness or palpitations or chest pain. No more nausea or vomiting. She had a vasovagal syncope yesterday. No other events overnight. She is having low-grade temperatures. She had 2 loose stools in the morning -mucus, foul-smelling. Objective: Physical exam: General: Alert, Oriented x3, Cooperative, No apparent distress, Well developed HEENT: Atraumatic Oral: Moist Mucosa Neck: Supple Lungs: Clear to auscultation Cardiovascular: HS I+II, regular, no murmurs Abdomen: Bowel Sounds Present, Soft, Non Tender Extremities: No edema Skin: No rashes, No breakdown Neurological: Grossly intact Psych/Mental Status: Appropriate Vitals/I&O's: Vital Signs Temp Pulse Resp BP Pulse Ox 98.9 F 78 16 146/69 H 93 09/28/20 08:24 09/28/20 08:24 09/28/20 08:24 09/28/20 08:24 09/28/20 08:24 Oxygen Delivery Method Room Air Weight: 73.482 kg Body Mass Index (BMI) 26.9 Intake and Output for Last 24 Hours 09/26/20 09/27/20 09/28/20 23:59 23:59 23:59 Intake Total 1946.75 / 1946.75 3077.92 / 3077.92 200 / 200 Output Total 550 / 550 Balance 1946.75 / 1946.75 2527.92 / 2527.92 200 / 200 Microbiology Past 72 Hours 09/26/20 13:50 Blood Culture (Wb) - Right Wrist Blood Culture - Preliminary No growth in 48 hours. 09/26/20 12:55 Blood Culture (Wb) - Anticubital Right Blood Culture - Preliminary No growth in 48 hours. Laboratory Results 09/27/20 23:46: POC Glucose 113 H 09/28/20 00:20: WBC 5.2, RBC 4.40, Hgb 13.0, Hct 39.3, MCV 89.3, MCH 29.5, MCHC 33.1, RDW Std Deviation 42.2, RDW Coeff of Eamon 12.8, Plt Count 206, MPV 9.7, Immature Gran % (Auto) 0.400, Neut % (Auto) 74.3 H, Lymph % (Auto) 20.8, [place] % (Auto) 4.3, Eos % (Auto) 0.0, Baso % (Auto) 0.2, Absolute Neuts (auto) 3.8, Absolute Lymphs (auto) 1.07, Nucleated RBC % 0 09/28/20 00:20: Sodium 129 L, Potassium 3.1 L, Chloride 101, Carbon Dioxide 20.0 L, Anion Gap 8, BUN 5 L, Creatinine 0.60, Estim Creat Clear Calc 39.03, Est GFR (MDRD) Af Amer 123, Est GFR (MDRD) Non-Af 102, BUN/Creatinine Ratio 8.4 L, Glucose 119 H, Calcium 8.4 L 09/28/20 05:11: WBC 4.1 L, RBC 4.43, Hgb 12.9, Hct 39.2, MCV 88.5, MCH 29.1, MCHC 32.9, RDW Std Deviation 41.9, RDW Coeff of Eamon 12.8, Plt Count 211, MPV 10.0, Immature Gran % (Auto) 0.200, Neut % (Auto) 74.7 H, Lymph % (Auto) 18.4 L, [place] % (Auto) 6.5, Eos % (Auto) 0.0, Baso % (Auto) 0.2, Absolute Neuts (auto) 3.1, Absolute Lymphs (auto) 0.76 L, Nucleated RBC % 0 09/28/20 05:11: Sodium 131 L, Potassium 4.0, Chloride 100, Carbon Dioxide 23.0, Anion Gap 8, BUN 5 L, Creatinine 0.68, Estim Creat Clear Calc 39.03, Est GFR (MDRD) Af Amer 107, Est GFR (MDRD) Non-Af 88, BUN/Creatinine Ratio 7.4 L, Glucose 97, Calcium 8.4 L Current Medications Acetaminophen (Acetaminophen 325 Mg Tablet) 650 mg PO Q6H PRN PRN PRN Reason: Pain Score 1-10/Temp > 100.7 F Last Admin: 09/28/20 02:34 Dose: 650 mg Documented by: Duloxetine HCl (Duloxetine Hcl 30 Mg Capsule) 30 mg PO BID [facility] Last Admin: 09/28/20 10:14 Dose: 30 mg Documented by: Sodium Chloride () 250 mls @ 15 mls/hr IV .[id number] PRN PRN Reason: Saline Flush Last Infusion: 09/27/20 09:15 Dose: Infused Documented by: Sodium Chloride () 250 mls @ 15 mls/hr IV .[id number] PRN PRN Reason: Additional IVPB Infusion Nutritional Formula (Lactose Free) (Ensure Enlive 120 Ml Liquid) 120 ml PO 4X/DAY [facility] Last Admin: 09/28/20 10:14 Dose: 120 ml Documented by: Ondansetron HCl (Ondansetron 4 Mg/2 Ml Vial) 4 mg IV Q8H PRN PRN PRN Reason: NAUSEA/VOMITING Oxycodone HCl (Oxycodone 5 Mg Tablet) 5 mg PO Q4H PRN PRN PRN Reason: Pain Score 4-10 Promethazine HCl (Promethazine 25 Mg/Ml Syringe) 25 mg IM Q6H PRN PRN PRN Reason: Breakthrough nausea/vomiting Quetiapine Fumarate (Quetiapine 25 Mg Tablet) 25 mg PO QHS [facility] Last Admin: 09/27/20 20:52 Dose: 25 mg Documented by: Sodium Chloride (0.9% Saline Lock 10 Ml Syringe) 10 - 40 ml IV UD PRN PRN Reason: SALINE FLUSH Last Admin: 09/26/20 16:51 Dose: 10 ml Documented by: Sodium Chloride (0.9% Saline Lock 10 Ml Syringe) 10 - 40 ml IV UD PRN PRN Reason: SALINE FLUSH STROKE Vital Signs/Narrative: Vital Signs Temp Pulse Resp BP Pulse Ox 09/28/20 08:24 98.9 F 78 16 146/69 H 93 Medical Necessity - Tobacco Use Smoking Status: Former smoker Assessment/Plan All Active Problems Chest pain (Acute) Gastroenteritis (Acute) Pneumonia (Acute) Hypokalemia (Acute) Hyponatremia (Acute) 1. Episode of vasovagal syncope, no more syncopal episodes EKG showed QTC of 462 We will continue to monitor 2. Pneumonia, right upper lobe, present on admitting chest x-ray and abdominal x-ray Blood cultures are negative; will start patient on IV ceftriaxone and azithromycin Check urine streptococcal and Legionella antigen 3.Intractable nausea and vomiting, appears resolved 4. Debility secondary to recent Acute UTI PT/OT to evaluate and treat 5. Hypokalemia, resolved 6. Dementia with behaviorials, continue on Seroquel and Cymbalta QTC is 462 7. DVT PPx- Heparin SC Inpatient E&M: 06941 Subs Hosp L2
--- NOTE | 2020-09-28 11:50 | CASEMGMT ---
Social Work Note SW updated that pt has CM through [employer] [place]. SW placed a call to [facility], pt's CM is Kathi Obando. SW left message for Kathi updating her on pt's admission to [facility]. Carmen Quezada PLATEMAKER, HAND MOLD MAKER
--- NOTE | 2020-09-28 13:07 | CASEMGMT ---
TC back to pt dtr regarding dc planning. She states she spoke with pt telehealth case manager Lauren Obando who states pt would qualify for short SNF stay. She states this is the route she would like to take. Made aware that Machelle VERDUZCO would like to speak with her regarding this.
--- NOTE | 2020-09-28 14:56 | CASEMGMT ---
Social Work Note LUBA updated that pt's daughter Nicko is requesting SNF placement. LUBA spoke with Nicko on the phone. Nicko was verbally provided a list of SNF providers including quality and resource use data and consistent with the patient?s preferred geographic region, medical needs, and insurance network. Nicko's preferred provider is [facility] and second choice is [facility]. LUBA explained referral process and that pt will need pre-cert. LUBA placed a call to Padmini at [facility] and updated Padmini on referral. LUBA faxed referral. Plan: [facility] pending acceptance and pre-cert Carmen Quezada KNOWLEDGE MANAGEMENT ADVISOR, ADJUNCT PROFESSOR OF [employer]
[2020-09-28] MEDS: 0.9% Normal Saline 1,000 ML 100 ML IV (16:24)
[2020-09-28] MEDS: Heparin Injection (Vial) 5,000 UNIT/ML VIAL 5000 UNIT SC (22:16)
[2020-09-28] MEDS: QUEtiapine 25 MG Tablet PO (22:16)
[2020-09-29] VITALS (10 sets, daily range): BP systolic 122–159; BP diastolic 61–92; PULSE 72–89; RESP 16–32; TEMP 37.3–37.9; O2SAT 88–94
[2020-09-29] MEDS: 0.9% Normal Saline 1,000 ML 100 ML IV (04:15)
[2020-09-29] MEDS: Heparin Injection (Vial) 5,000 UNIT/ML VIAL 5000 UNIT SC ×3 (05:55→22:29)
--- NOTE | 2020-09-29 07:16 | PCM.PN.HOSP ---
Patient Problems: Active and Suspected Problems Gastroenteritis (Acute) Pneumonia (Acute) Hypokalemia (Acute) Hyponatremia (Acute) Reason for Visit: Follow-up on debility/recent UTI/pneumonia Subjective: Patient was seen and examined. She has refused to eat. She has been drinking her nutritional supplements. Patient's daughter is sick with COVID and hence patient will be discharged to SNF. Awaiting precert Objective: Physical exam: General: Alert, Oriented x3, Cooperative, No apparent distress, Well developed HEENT: Atraumatic Oral: Moist Mucosa Neck: Supple Lungs: Clear to auscultation Cardiovascular: HS I+II, regular, no murmurs Abdomen: Bowel Sounds Present, Soft, Non Tender Extremities: No edema Skin: No rashes, No breakdown Neurological: Grossly intact Psych/Mental Status: Appropriate Vitals/I&O's: Vital Signs Temp Pulse Resp BP Pulse Ox 99.1 F 75 16 122/61 H 92 09/29/20 02:00 09/29/20 05:37 09/29/20 02:00 09/29/20 02:00 09/29/20 02:00 Oxygen Delivery Method Room Air Weight: 73.482 kg Body Mass Index (BMI) 26.9 Intake and Output for Last 24 Hours 09/27/20 09/28/20 09/29/20 23:59 23:59 23:59 Intake Total 3077.92 / 3077.92 523.34 / 523.34 981.66 / 981.66 Output Total 550 / 550 300 / 300 Balance 2527.92 / 2527.92 523.34 / 523.34 681.66 / 681.66 Microbiology Past 72 Hours 09/29/20 02:05 Urine, Clean Catch Legionella Antigen - Final 09/29/20 02:05 Urine, Clean Catch Streptococcus pneumoniae Antigen (M - Final 09/28/20 13:55 Stool Enteric Bacteriology - Final 09/28/20 13:55 Stool C. difficile DNA Amplification - Final 09/26/20 13:50 Blood Culture (Wb) - Right Wrist Blood Culture - Preliminary No growth in 48 hours. 09/26/20 12:55 Blood Culture (Wb) - Anticubital Right Blood Culture - Preliminary No growth in 48 hours. Current Medications Acetaminophen (Acetaminophen 325 Mg Tablet) 650 mg PO Q6H PRN PRN PRN Reason: Pain Score 1-10/Temp > 100.7 F Last Admin: 09/28/20 20:26 Dose: 650 mg Documented by: Duloxetine HCl (Duloxetine Hcl 30 Mg Capsule) 30 mg PO BID [facility] Last Admin: 09/28/20 22:16 Dose: 30 mg Documented by: Heparin Sodium (Porcine) (Heparin Injection (Vial) 5,000 Unit/Ml Vial) 5,000 unit SC Q8 [facility] Last Admin: 09/29/20 05:55 Dose: 5,000 unit Documented by: Sodium Chloride () 250 mls @ 15 mls/hr IV .[id number] PRN PRN Reason: Saline Flush Last Infusion: 09/27/20 09:15 Dose: Infused Documented by: Sodium Chloride () 250 mls @ 15 mls/hr IV .[id number] PRN PRN Reason: Additional IVPB Infusion Ceftriaxone Sodium 2 gm/ (Sodium Chloride) 50 mls @ 100 mls/hr IV Q24 [facility] Last Infusion: 09/28/20 16:55 Dose: Infused Documented by: Azithromycin 500 mg/ Dextrose 255 mls @ 250 mls/hr IV Q24 [facility] Last Infusion: 09/28/20 18:07 Dose: Infused Documented by: Nutritional Formula (Lactose Free) (Ensure Enlive 120 Ml Liquid) 120 ml PO 4X/DAY [facility] Last Admin: 09/28/20 22:16 Dose: 120 ml Documented by: Oxycodone HCl (Oxycodone 5 Mg Tablet) 5 mg PO Q4H PRN PRN PRN Reason: Pain Score 4-10 Quetiapine Fumarate (Quetiapine 25 Mg Tablet) 25 mg PO QHS [facility] Last Admin: 09/28/20 22:16 Dose: 25 mg Documented by: Sodium Chloride (0.9% Saline Lock 10 Ml Syringe) 10 - 40 ml IV UD PRN PRN Reason: SALINE FLUSH Last Admin: 09/26/20 16:51 Dose: 10 ml Documented by: Sodium Chloride (0.9% Saline Lock 10 Ml Syringe) 10 - 40 ml IV UD PRN PRN Reason: SALINE FLUSH STROKE Vital Signs/Narrative: Vital Signs Pulse 09/29/20 05:37 75 Medical Necessity - Tobacco Use Smoking Status: Former smoker Assessment/Plan All Active Problems Chest pain (Acute) Gastroenteritis (Acute) Pneumonia (Acute) Hypokalemia (Acute) Hyponatremia (Acute) 1. Episode of vasovagal syncope, QTc is 462 2. Acute Pneumonia, right upper lobe, present on admitting chest x-ray and repeat x-ray Blood cultures are negative; continue on IV ceftriaxone and azithromycin Check urine streptococcal and Legionella antigen 3.Intractable nausea and vomiting, appears resolved 4. Debility secondary to recent Acute UTI 5. Hypokalemia, resolved 6. Dementia with behaviorals, continue on Seroquel and Cymbalta 7. DVT PPx- Heparin SC Inpatient E&M: 28249 Subs Hosp L2
--- NOTE | 2020-09-29 08:57 | CASEMGMT ---
Addendum entered by Carmen Quezada 09/29/20 10:25: LUBA spoke with Padmini at [facility] stating they are able to accept pt and will submit for pre-cert. SW placed a call to pt's daughter Nicko and updated her on pt's acceptance to [facility] pending pre-cert. Nicko states understanding. Plan: [facility] pending pre-cert Original Note: Social Work Note SW placed a call to Padmini at [facility] and left message regarding referral. SW waiting for call back. Plan: [facility] pending acceptance and pre-cert Carmen Quezada PRODUCTION ROUSTABOUT, SOLAR SYSTEMS DESIGNER
[2020-09-29] MEDS: DULoxetine Hcl 30 MG Capsule PO ×2 (10:35→22:28)
[2020-09-29 15:00] LABS: Absolute Lymphocyte Count 0.88 X10^3/uL (0.83-4.51); Absolute Neutrophil Count 5.1 X10^3/uL (2.0-7.7); Basophil# 0.02 X10^3/uL; Basophil% 0.3 % (0-1); Lymphocyte # 0.88 X10^3/ul (4.0); Lymphocyte % 14.1 % (19-41); Mean Corp Hgb Conc 33.3 g/dL (32-36); Mean Corpuscular Hgb 29.5 pg (27.0-32.0); Mean Corpuscular Volume 88.6 fL (81-99); Monocyte# 0.23 X10^3/uL; Monocyte% 3.7 % (0-10); NRBC Flagged by Analyzer 0 % (0-5); Neutrophil # 5.09 X10^3/uL (2.7-7.7); Neutrophil % 81.6 % (47-70); Platelet Count 231 K/mm3 (150-450); RBC Distribution Width CV 12.5 % (11.6-14.6); RBC Distribution Width SD 40.9 fl (35.1-43.9); Red Blood Count 4.74 M/mm3 (4.2-5.4); White Blood Count 6.2 K/mm3 (4.4-11.0)
[2020-09-29 15:29] LABS: ALB/GLOB Ratio 0.6 RATIO (0.9-2.4); AST(SGOT) 52 U/L (15-37); Alanine Aminotransfer ALT/SGPT 68 U/L (13-56); Albumin, Serum 2.9 g/dL (3.2-5.0); Alkaline Phosphatase 115 U/L (45-117); Anion Gap 8 (5-15); BUN 4 mg/dL (7-18); BUN/Creat Ratio 6.6 RATIO (10-20); Calcium,Total 8.4 mg/dL (8.5-10.1); Chloride 97 mmol/L (98-107); Creatinine, Serum 0.61 mg/dL (0.55-1.02); EST Glomerular Filtration Rate 100 mL/min (>60); Est Glom Filt Rate - Afr Amer 121 mL/min (>60); Estimated Creatinine Clearance 39.03 ml/min; Globulin 4.7 g/dL (2.2-4.2); Glucose 101 mg/dL (74-106); Potassium 3.2 mmol/L (3.5-5.1); Protein, Total 7.6 g/dL (6.4-8.2); Sodium Level 127 mmol/L (136-145)
--- NOTE | 2020-09-29 20:50 | RAD_ITS ---
STUDY: X-RAY CHEST REASON FOR EXAM: Female, 84 years old. increased O2 requirements TECHNIQUE: Frontal view COMPARISON: 09/26/2020. FINDINGS: The lungs are expanded. Bilateral patchy infiltrates. Normal size heart. Normal mediastinum and sharon. Normal visualized pulmonary arteries. Normal visualized aortic arch and descending thoracic aorta. Normal visualized thoracic spine. Normal visualized ribs, clavicles, and shoulders. There is no demonstrated abnormality of the visualized soft tissue structures of the upper abdomen. RAD/Chest 1 View (Portable) IMPRESSION: Bilateral patchy infiltrates. Electronically Signed: Dimitris Abel DO at 22:15 EDT Tel [phone], Service support ,
[2020-09-29] MEDS: QUEtiapine 25 MG Tablet PO (22:28)
[2020-09-30] VITALS (12 sets, daily range): BP systolic 107–152; BP diastolic 57–99; PULSE 68–88; RESP 20–38; TEMP 36.5–38.4; O2SAT 90–100
[2020-09-30] MEDS: Heparin Injection (Vial) 5,000 UNIT/ML VIAL 5000 UNIT SC ×3 (06:11→20:20)
[2020-09-30 06:45] LABS: Absolute Lymphocyte Count 0.92 X10^3/uL (0.83-4.51); Absolute Neutrophil Count 4.1 X10^3/uL (2.0-7.7); Basophil# 0.01 X10^3/uL; Basophil% 0.2 % (0-1); Hematocrit 39.7 % (37-47); Hemoglobin 13.4 g/dL (12.0-15.0); Lymphocyte # 0.92 X10^3/ul (4.0); Lymphocyte % 17.2 % (19-41); Mean Corp Hgb Conc 33.8 g/dL (32-36); Mean Corpuscular Hgb 29.3 pg (27.0-32.0); Mean Corpuscular Volume 86.7 fL (81-99); Mean Platelet Vol. 10.9 fl (6.2-12.0); Monocyte# 0.29 X10^3/uL; Monocyte% 5.4 % (0-10); NRBC Flagged by Analyzer 0 % (0-5); Neutrophil # 4.11 X10^3/uL (2.7-7.7); Neutrophil % 76.8 % (47-70); POSITIVE MORPHOLOGY YES; Platelet Count 226 K/mm3 (150-450); RBC Distribution Width CV 12.4 % (11.6-14.6); RBC Distribution Width SD 39.6 fl (35.1-43.9); Red Blood Count 4.58 M/mm3 (4.2-5.4); White Blood Count 5.4 K/mm3 (4.4-11.0)
[2020-09-30 06:46] LABS: Differential Indicated SCAN CRITERIA MET
[2020-09-30 07:02] LABS: Differential Comment SCANNED
[2020-09-30 07:03] LABS: Atypical Lymphocyte 1+ %
[2020-09-30 07:13] LABS: ALB/GLOB Ratio 0.6 RATIO (0.9-2.4); AST(SGOT) 41 U/L (15-37); Alanine Aminotransfer ALT/SGPT 59 U/L (13-56); Albumin, Serum 2.7 g/dL (3.2-5.0); Alkaline Phosphatase 108 U/L (45-117); Anion Gap 9 (5-15); BUN 6 mg/dL (7-18); BUN/Creat Ratio 11.6 RATIO (10-20); Calcium,Total 8.5 mg/dL (8.5-10.1); Chloride 95 mmol/L (98-107); Creatinine, Serum 0.52 mg/dL (0.55-1.02); EST Glomerular Filtration Rate 121 mL/min (>60); Est Glom Filt Rate - Afr Amer 146 mL/min (>60); Estimated Creatinine Clearance 39.03 ml/min; Globulin 4.5 g/dL (2.2-4.2); Glucose 99 mg/dL (74-106); Potassium 2.9 mmol/L (3.5-5.1); Protein, Total 7.2 g/dL (6.4-8.2); Sodium Level 128 mmol/L (136-145)
--- NOTE | 2020-09-30 08:03 | NURSING ---
aware of room MS203- ICU nurse in with another pt- will call back to get report for pt to be transfered down to [facility]
--- NOTE | 2020-09-30 08:06 | NURSING ---
phoned pt daughter at listed in deographics list- Nicko and updated on transfer to COHORT unit and room number. Nicko states she appreciates the update and information.
--- NOTE | 2020-09-30 08:13 | NURSING ---
nurse to nurse report given to Dat RN in ICU
--- NOTE | 2020-09-30 09:02 | NURSING ---
0845- pt transfered to CVICU cohort bed 203. bed exit on.
--- NOTE | 2020-09-30 09:06 | CASEMGMT ---
Social Work Note Pt transferred to ICU. LBUA placed a call to Padmini at [facility] and updated her. Padmini states she will update pt's insurance as she did receive pre-cert late last night. LUBA informed Padmini that [facility] PARKER will be the covering SW while pt is in ICU. LUBA placed a call to Antonina PARKER and left message updating her that pre-cert was obtained for [facility]. Carmen Quezada HELICOPTER ENGINEER, VISCERA WASHER
[2020-09-30 09:28] LABS: BNP,B-Type NATRIURETIC PEPTIDE 42.4 pg/mL (0-100)
[2020-09-30] MEDS: Potassium Chloride Oral Tablet 20 MEQ 60 MEQ PO (09:58)
[2020-09-30] MEDS: DULoxetine Hcl 30 MG Capsule PO ×2 (09:58→20:20)
[2020-09-30] MEDS: 0.9% Saline Lock 10 ML Syringe IV (09:59)
--- NOTE | 2020-09-30 11:19 | PCM.PN.HOSP ---
Patient Problems: Active and Suspected Problems Gastroenteritis (Acute) Pneumonia (Acute) Hypokalemia (Acute) Hyponatremia (Acute) Reason for Visit: Follow-up on hypoxia/pneumonia Subjective: Patient was seen and examined. Overnight she required increased amounts of oxygen, currently on 2 L of oxygen. She was also said to have a large bowel movement. Covid PCR is positive. She has been moved to the [facility] floor Objective: Physical exam: General: Alert, Oriented x3, Cooperative, No apparent distress, Well developed, comfortable on 2L oxygen HEENT: Atraumatic Oral: Moist Mucosa Neck: Supple Lungs: Clear to auscultation Cardiovascular: HS I+II, regular, no murmurs Abdomen: Bowel Sounds Present, Soft, Non Tender Extremities: No edema Skin: No rashes, No breakdown Neurological: Grossly intact Psych/Mental Status: Appropriate Vitals/I&O's: Vital Signs Temp Pulse Resp BP Pulse Ox 100.0 F H 78 30 H 127/57 H 94 09/30/20 09:30 09/30/20 09:30 09/30/20 09:30 09/30/20 09:30 09/30/20 09:30 Oxygen Flow Rate (L/min) 2 Oxygen Delivery Method Nasal Cannula Weight: 73.482 kg Body Mass Index (BMI) 26.9 Intake and Output for Last 24 Hours 09/28/20 09/29/20 09/30/20 23:59 23:59 23:59 Intake Total 523.34 / 523.34 2286.66 / 2286.66 191.67 / 191.67 Output Total 300 / 300 Balance 523.34 / 523.34 1985.66 / 1985.66 191.67 / 191.67 Microbiology Past 72 Hours 09/28/20 13:55 Stool Enteric Bacteriology - Final 09/28/20 13:55 Stool C. difficile DNA Amplification - Final 09/29/20 02:05 Urine, Clean Catch Legionella Antigen - Final 09/29/20 02:05 Urine, Clean Catch Streptococcus pneumoniae Antigen (M - Final 09/26/20 13:50 Blood Culture (Wb) - Right Wrist Blood Culture - Preliminary No growth in 48 hours. 09/26/20 12:55 Blood Culture (Wb) - Anticubital Right Blood Culture - Preliminary No growth in 48 hours. Laboratory Results 09/29/20 14:45: WBC 6.2, RBC 4.74, Hgb 14.0, Hct 42.0, MCV 88.6, MCH 29.5, MCHC 33.3, RDW Std Deviation 40.9, RDW Coeff of Eamon 12.5, Plt Count 231, MPV 10.0, Immature Gran % (Auto) 0.300, Neut % (Auto) 81.6 H, Lymph % (Auto) 14.1 L, [place] % (Auto) 3.7, Eos % (Auto) 0.0, Baso % (Auto) 0.3, Absolute Neuts (auto) 5.1, Absolute Lymphs (auto) 0.88, Nucleated RBC % 0 09/29/20 14:45: Sodium 127 L, Potassium 3.2 L, Chloride 97 L, Carbon Dioxide 22.0, Anion Gap 8, BUN 4 L, Creatinine 0.61, Estim Creat Clear Calc 39.03, Est GFR (MDRD) Af Amer 121, Est GFR (MDRD) Non-Af 100, BUN/Creatinine Ratio 6.6 L, Glucose 101, Calcium 8.4 L, Total Bilirubin 0.40, AST 52 H, ALT 68 H, Alkaline Phosphatase 115, Total Protein 7.6, Albumin 2.9 L, Globulin 4.7 H, Albumin/Globulin Ratio 0.6 L 09/30/20 05:45: WBC 5.4, RBC 4.58, Hgb 13.4, Hct 39.7, MCV 86.7, MCH 29.3, MCHC 33.8, RDW Std Deviation 39.6, RDW Coeff of Eamon 12.4, Plt Count 226, MPV 10.9, Immature Gran % (Auto) 0.400, Neut % (Auto) 76.8 H, Lymph % (Auto) 17.2 L, [place] % (Auto) 5.4, Eos % (Auto) 0.0, Baso % (Auto) 0.2, Absolute Neuts (auto) 4.1, Absolute Lymphs (auto) 0.92, Nucleated RBC % 0, Differential Comment SCANNED, Atypical Lymphocytes 1+ 09/30/20 05:45: Sodium 128 L, Potassium 2.9 L, Chloride 95 L, Carbon Dioxide 24.0, Anion Gap 9, BUN 6 L, Creatinine 0.52 L, Estim Creat Clear Calc 39.03, Est GFR (MDRD) Af Amer 146, Est GFR (MDRD) Non-Af 121, BUN/Creatinine Ratio 11.6, Glucose 99, Calcium 8.5, Total Bilirubin 0.60, AST 41 H, ALT 59 H, Alkaline Phosphatase 108, Total Protein 7.2, Albumin 2.7 L, Globulin 4.5 H, Albumin/Globulin Ratio 0.6 L 09/30/20 05:45: Magnesium 2.0 09/30/20 05:45: B-Natriuretic Peptide 42.4 09/30/20 08:10: COVID-19 (CHE) Detected Current Medications Acetaminophen (Acetaminophen 325 Mg Tablet) 650 mg PO Q6H PRN PRN PRN Reason: Pain Score 1-10/Temp > 100.7 F Last Admin: 09/28/20 20:26 Dose: 650 mg Documented by: Dexamethasone (Dexamethasone 4 Mg Tablet) 6 mg PO DAILY [facility] Duloxetine HCl (Duloxetine Hcl 30 Mg Capsule) 30 mg PO BID [facility] Last Admin: 09/30/20 09:58 Dose: 30 mg Documented by: Heparin Sodium (Porcine) (Heparin Injection (Vial) 5,000 Unit/Ml Vial) 5,000 unit SC Q8 [facility] Last Admin: 09/30/20 06:11 Dose: 5,000 unit Documented by: Sodium Chloride () 250 mls @ 15 mls/hr IV .[id number] PRN PRN Reason: Saline Flush Last Infusion: 09/27/20 09:15 Dose: Infused Documented by: Sodium Chloride () 250 mls @ 15 mls/hr IV .[id number] PRN PRN Reason: Additional IVPB Infusion Ceftriaxone Sodium 2 gm/ (Sodium Chloride) 50 mls @ 100 mls/hr IV Q24 [facility] Last Infusion: 09/29/20 11:05 Dose: Infused Documented by: Azithromycin 500 mg/ Dextrose 255 mls @ 250 mls/hr IV Q24 [facility] Last Infusion: 09/30/20 10:45 Dose: 0 mls/hr Documented by: Nutritional Formula (Lactose Free) (Ensure Enlive 120 Ml Liquid) 120 ml PO 4X/DAY [facility] Last Admin: 09/30/20 09:58 Dose: Not Given Documented by: Oxycodone HCl (Oxycodone 5 Mg Tablet) 5 mg PO Q4H PRN PRN PRN Reason: Pain Score 4-10 Quetiapine Fumarate (Quetiapine 25 Mg Tablet) 25 mg PO QHS [facility] Last Admin: 09/29/20 22:28 Dose: 25 mg Documented by: Sodium Chloride (0.9% Saline Lock 10 Ml Syringe) 10 - 40 ml IV UD PRN PRN Reason: SALINE FLUSH Last Admin: 09/30/20 09:59 Dose: 10 ml Documented by: Sodium Chloride (0.9% Saline Lock 10 Ml Syringe) 10 - 40 ml IV UD PRN PRN Reason: SALINE FLUSH STROKE Vital Signs/Narrative: Vital Signs Temp Pulse Resp BP Pulse Ox 09/30/20 09:30 100.0 F H 78 30 H 127/57 H 94 Medical Necessity - Tobacco Use Smoking Status: Former smoker Assessment/Plan All Active Problems Chest pain (Acute) Gastroenteritis (Acute) Pneumonia (Acute) Hypokalemia (Acute) Hyponatremia (Acute) 1. Acute COVID-19 pneumonia; repeat chest x-ray this morning shows worsening bilateral infiltrates Transferred to Covid cohort floor, start on Decadron, ID consult Will check D-dimer and procalcitonin Continue on IV ceftriaxone and azithromycin 2. Acute hypoxic insufficiency secondary to #1, currently on 2 L of oxygen, continue to monitor, Continue with inhaler prn, po steroids, encourage use of incentive spirometer. Wean off oxygen for SPO2 more than 94% 3. Hypokalemia,replacing, recheck in am 4. Dementia with behavioral, continue on Seroquel and Cymbalta 5. DVT PPx- Heparin SC Inpatient E&M: [id number] [facility] Hosp L3
[2020-09-30 12:08] LABS: D-Dimer Quantitative (DVT/PE) 1.59 FEU/ug/m (0.27-0.49)
[2020-09-30 12:09] LABS: Anion Gap 8 (5-15); BUN 7 mg/dL (7-18); BUN/Creat Ratio 11.6 RATIO (10-20); Calcium,Total 8.3 mg/dL (8.5-10.1); Chloride 95 mmol/L (98-107); EST Glomerular Filtration Rate 101 mL/min (>60); Est Glom Filt Rate - Afr Amer 122 mL/min (>60); Estimated Creatinine Clearance 39.03 ml/min; Glucose 113 mg/dL (74-106); Potassium 3.4 mmol/L (3.5-5.1); Sodium Level 128 mmol/L (136-145)
[2020-09-30 12:19] LABS: Procalcitonin 0.11 ng/mL (0.00-0.09)
[2020-09-30] MEDS: dexAMETHasone 4 MG Tablet 6 MG PO (12:20)
[2020-09-30] MEDS: Acetaminophen 325 MG Tablet 650 MG PO ×2 (12:24→20:20)
--- NOTE | 2020-09-30 12:39 | CASEMGMT ---
Social Work Pt tested positive for Covid. Phone call to [facility] and they are unable to accept pt as they do not have a Covid unit. Phone call to pt daughter Nicko and informed of above. SW explained that there are 4 nursing facilities in a 30 mile radius that are in network with insurance and accepting Covid Patients. [facility], [facility], [facility] and [facility]. Dgt choices as follows: 1. [facility] - phone call placed and they are currently full 2. [facility] - phone call placed and they have closed their Covid Unit 3. [facility] - VM left, will await return call 4. [facility] - they do have one bed available. LUBA will await return call from [facility] on bed availability and will then make referral as appropriate. Dgt Nicko is aware and LUBA will keep her updated. ELENA Valencia
--- NOTE | 2020-09-30 13:26 | CASEMGMT ---
Social Work SW received phone call from [facility] and they have no bed availability. Referral faxed to [facility]. Pt daughter Nicko notified. Will await determination if they can accept. ELENA Valencia
--- NOTE | 2020-09-30 13:27 | CON.PCM_ITS ---
Problem List (1) COVID-19 Status: Acute Reason for Consult: covid Consulted by: Dr. Monahan History of Present Illness: The patient is a 84 year old F with dementia, presented with sx starting about 2 weeks ago, daughter reports she has been tired, weak, having aches/pain. Dx with uti, started on amoxicillin, started having n/v, progressive illness. Pt lives with daughter. Pt's son visited after being exposed to covid and then became ill. Pt became ill, then daughter became ill 09/18. None had been vaccinated. Pt admitted here 09/26, started on azithro/ceftriaxone for CAP, had synocopal episode, fever, hypoxia. Now covid (+) and started on dex. Feeling ok other than compliant of headache. Full ROS performed and neg except as noted above. Additional history obtained from daughter. - Medical History Past Medical History (Chronic Problems): Chronic Problems Dementia (Chronic) Chronic diarrhea (Chronic) Urinary incontinence (Chronic) History of TIA (transient ischemic attack) (Chronic) IBS (irritable bowel syndrome) (Chronic) Allergies/Adverse Reactions: Allergies aspirin Adverse Reaction (Verified 09/26/20 10:29) Nausea Home Medications: Ambulatory Orders Medication Instructions Recorded Amoxicillin 875 mg PO 09/26/20 Duloxetine Hcl [Cymbalta] 30 mg PO BID 09/26/20 Ondansetron [Zofran Odt] 1 - 2 tablet SL Q8H PRN PRN 09/26/20 Quetiapine Fumarate [Seroquel] 25 mg PO QHS 09/26/20 - Social History SMOKING STATUS:: Former smoker Vital Signs Temp Pulse Resp BP Pulse Ox 101.2 F H 83 38 H 143/61 H 100 09/30/20 12:00 09/30/20 12:00 09/30/20 12:00 09/30/20 12:00 09/30/20 12:00 Oxygen Flow Rate (L/min) 2 Oxygen Delivery Method Nasal Cannula Weight: 73.482 kg Body Mass Index (BMI) 26.9 Microbiology Past 72 Hours 09/28/20 13:55 Enteric Bacteriology - Final Stool C. difficile DNA Amplification - Final 09/29/20 02:05 Legionella Antigen - Final Urine, Clean Catch Streptococcus pneumoniae Antigen (M - Final 09/26/20 13:50 Blood Culture - Preliminary Blood Culture (Wb) - Right Wrist No growth in 48 hours. 09/26/20 12:55 Blood Culture - Preliminary Blood Culture (Wb) - Anticubital Right No growth in 48 hours. Laboratory Tests Past 24 Hrs 09/29/20 09/29/20 09/30/20 14:45 14:45 05:45 WBC 6.2 5.4 RBC 4.74 4.58 Hgb 14.0 13.4 Hct 42.0 39.7 MCV 88.6 86.7 MCH 29.5 29.3 MCHC 33.3 33.8 RDW Std Deviation 40.9 39.6 RDW Coeff of Eamon 12.5 12.4 Plt Count 231 226 MPV 10.0 10.9 Immature Gran % (Auto) 0.300 0.400 Neut % (Auto) 81.6 H 76.8 H Lymph % (Auto) 14.1 L 17.2 L [place] % (Auto) 3.7 5.4 Eos % (Auto) 0.0 0.0 Baso % (Auto) 0.3 0.2 Absolute Neuts (auto) 5.1 4.1 Absolute Lymphs (auto) 0.88 0.92 Nucleated RBC % 0 0 Differential Comment SCANNED Atypical Lymphocytes 1+ D-Dimer Quant (PE/DVT) Sodium 127 L Potassium 3.2 L Chloride 97 L Carbon Dioxide 22.0 Anion Gap 8 BUN 4 L Creatinine 0.61 Estim Creat Clear Calc 39.03 Est GFR (MDRD) Af Amer 121 Est GFR (MDRD) Non-Af 100 BUN/Creatinine Ratio 6.6 L Glucose 101 Calcium 8.4 L Magnesium Total Bilirubin 0.40 AST 52 H ALT 68 H Alkaline Phosphatase 115 B-Natriuretic Peptide Total Protein 7.6 Albumin 2.9 L Globulin 4.7 H Albumin/Globulin Ratio 0.6 L Procalcitonin COVID-19 (CHE) 09/30/20 09/30/20 09/30/20 05:45 05:45 05:45 WBC RBC Hgb Hct MCV MCH MCHC RDW Std Deviation RDW Coeff of Eamon Plt Count MPV Immature Gran % (Auto) Neut % (Auto) Lymph % (Auto) [place] % (Auto) Eos % (Auto) Baso % (Auto) Absolute Neuts (auto) Absolute Lymphs (auto) Nucleated RBC % Differential Comment Atypical Lymphocytes D-Dimer Quant (PE/DVT) Sodium 128 L Potassium 2.9 L Chloride 95 L Carbon Dioxide 24.0 Anion Gap 9 BUN 6 L Creatinine 0.52 L Estim Creat Clear Calc 39.03 Est GFR (MDRD) Af Amer 146 Est GFR (MDRD) Non-Af 121 BUN/Creatinine Ratio 11.6 Glucose 99 Calcium 8.5 Magnesium 2.0 Total Bilirubin 0.60 AST 41 H ALT 59 H Alkaline Phosphatase 108 B-Natriuretic Peptide 42.4 Total Protein 7.2 Albumin 2.7 L Globulin 4.5 H Albumin/Globulin Ratio 0.6 L Procalcitonin COVID-19 (CHE) 09/30/20 09/30/20 09/30/20 08:10 11:35 11:35 WBC RBC Hgb Hct MCV MCH MCHC RDW Std Deviation RDW Coeff of Eamon Plt Count MPV Immature Gran % (Auto) Neut % (Auto) Lymph % (Auto) [place] % (Auto) Eos % (Auto) Baso % (Auto) Absolute Neuts (auto) Absolute Lymphs (auto) Nucleated RBC % Differential Comment Atypical Lymphocytes D-Dimer Quant (PE/DVT) 1.59 H* Sodium Potassium Chloride Carbon Dioxide Anion Gap BUN Creatinine Estim Creat Clear Calc Est GFR (MDRD) Af Amer Est GFR (MDRD) Non-Af BUN/Creatinine Ratio Glucose Calcium Magnesium Total Bilirubin AST ALT Alkaline Phosphatase B-Natriuretic Peptide Total Protein Albumin Globulin Albumin/Globulin Ratio Procalcitonin 0.11 H COVID-19 (CHE) Detected 09/30/20 11:45 WBC RBC Hgb Hct MCV MCH MCHC RDW Std Deviation RDW Coeff of Eamon Plt Count MPV Immature Gran % (Auto) Neut % (Auto) Lymph % (Auto) [place] % (Auto) Eos % (Auto) Baso % (Auto) Absolute Neuts (auto) Absolute Lymphs (auto) Nucleated RBC % Differential Comment Atypical Lymphocytes D-Dimer Quant (PE/DVT) Sodium 128 L Potassium 3.4 L Chloride 95 L Carbon Dioxide 25.0 Anion Gap 8 BUN 7 Creatinine 0.60 Estim Creat Clear Calc 39.03 Est GFR (MDRD) Af Amer 122 Est GFR (MDRD) Non-Af 101 BUN/Creatinine Ratio 11.6 Glucose 113 H Calcium 8.3 L Magnesium Total Bilirubin AST ALT Alkaline Phosphatase B-Natriuretic Peptide Total Protein Albumin Globulin Albumin/Globulin Ratio Procalcitonin COVID-19 (CHE) - Other Studies Radiology: [] reviewed Other Studies: [] Route of nutrition/ use of supplements: [] Nutritional Intake: [] IV Site: [] Ferreira Catheter: [] - Physical Exam General: Cooperative, No apparent distress HEENT: Atraumatic, PERRLA, EOMI Neck: Supple, No Nodes Lungs: Diminished Cardiovascular: Regular rate, Regular Rhythm Abdomen: Soft, Non Tender, Non-Distended Extremities: No edema Skin: No rashes IV Site: Peripheral, without redness Musculoskeletal: No Tenderness to Palpation of Joints or Extremities Neurological: Cranial nerves II-XII grossly intact, - - oriented x1 - Assessment/Plan Antibiotics: [] Assessment/Plan: [] Active and Suspected Problems Gastroenteritis (Acute) Pneumonia (Acute) Hypokalemia (Acute) Hyponatremia (Acute) covid with hypoxia - sx started around 2 weeks. Son and daughter both with covid. Agree with 10 day course of dex, not doing remdesivir due to timing of symptoms and exposure. Recommend vaccination once she is done with 20 day of quarantine (plan to end 10/07/20). Will stop azithro and ceftriaxone, low suspicion for bacterial pneumonia at this point. Cdiff neg. UAg neg. Will follow, thank you
--- NOTE | 2020-09-30 13:37 | CT_ITS ---
STUDY: CTA CHEST REASON FOR EXAM: Female, 84 years old. Low to intermediate pretest probability for pulmonary embolism. Positive d-dimer. RADIATION DOSAGE (If Supplied By Facility): CTDIvol = ( 9.93 ) mGy, DLP = ( 376.16 ) mGycm TECHNIQUE: The examination was performed with the intravenous administration of IV 100mL [id number]. Post-processing of the angiographic images was performed, with multiplanar reformation and 3D reconstruction. Individualized dose optimization techniques were used for this CT. COMPARISON: Chest, 09/29/2020. CTA of the chest, 02/17/2015. FINDINGS: Normal enhancement of the main pulmonary artery and right and left pulmonary arteries. Normal enhancement of the bilateral peripheral pulmonary arteries. There is no demonstrated pulmonary embolism. Normal thoracic aorta and visualized great vessels. There is no demonstrated aortic dissection. Normal heart and pericardium. Normal mediastinum. Normal hilar regions. Normal visualized trachea and bronchi. The lungs are well expanded. Diffuse groundglass infiltrates most marked in the right upper lobe. No focal consolidation or mass. Normal pleura. Normal chest wall structures. Normal osseous structures. Normal visualized upper abdomen. CT/CTA Chest W/WO Contrast IMPRESSION: 1. No evidence of pulmonary embolus. 2. No aortic dissection or aneurysm. 3. Diffuse ground glass infiltrates suspicious for atypical viral pneumonia. Electronically Signed: Kamran Castro DO at 16:28 EDT Tel [phone], Service support ,
[2020-09-30] MEDS: Potassium Chloride Oral Tablet 20 MEQ 40 MEQ PO (15:09)
--- NOTE | 2020-09-30 15:10 | CASEMGMT ---
Social Work Return call from [facility] and they are able to accept pt and will start precert at this time. ELENA Valencia
[2020-09-30] MEDS: QUEtiapine 25 MG Tablet PO (20:20)
[2020-10-01] VITALS (12 sets, daily range): BP systolic 126–169; BP diastolic 58–80; PULSE 67–97; RESP 18–30; TEMP 36.6–37.2; O2SAT 91–97
[2020-10-01 03:18] LABS: Absolute Lymphocyte Count 0.66 X10^3/uL (0.83-4.51); Absolute Neutrophil Count 4.9 X10^3/uL (2.0-7.7); Basophil# 0.01 X10^3/uL; Basophil% 0.2 % (0-1); Hematocrit 40.2 % (37-47); Hemoglobin 13.7 g/dL (12.0-15.0); Lymphocyte # 0.66 X10^3/ul (0.83-4.51); Lymphocyte % 11.3 % (19-41); Mean Corp Hgb Conc 34.1 g/dL (32-36); Mean Corpuscular Hgb 29.8 pg (27.0-32.0); Mean Corpuscular Volume 87.6 fL (81-99); Mean Platelet Vol. 10.1 fl (6.2-12.0); Monocyte# 0.25 X10^3/uL; Monocyte% 4.3 % (0-10); NRBC Flagged by Analyzer 0 % (0-5); Neutrophil # 4.89 X10^3/uL (2.7-7.7); Neutrophil % 83.7 % (47-70); POSITIVE MORPHOLOGY YES; Platelet Count 287 K/mm3 (150-450); RBC Distribution Width CV 12.6 % (11.6-14.6); RBC Distribution Width SD 40.1 fl (35.1-43.9); Red Blood Count 4.59 M/mm3 (4.2-5.4); White Blood Count 5.8 K/mm3 (4.4-11.0)
[2020-10-01 03:19] LABS: Differential Indicated SCAN CRITERIA MET
[2020-10-01 03:31] LABS: ALB/GLOB Ratio 0.6 RATIO (0.9-2.4); AST(SGOT) 42 U/L (15-37); Alanine Aminotransfer ALT/SGPT 61 U/L (13-56); Albumin, Serum 2.8 g/dL (3.2-5.0); Alkaline Phosphatase 109 U/L (45-117); Anion Gap 8 (5-15); BUN 12 mg/dL (7-18); Calcium,Total 8.9 mg/dL (8.5-10.1); Chloride 101 mmol/L (98-107); Creatinine, Serum 0.67 mg/dL (0.55-1.02); EST Glomerular Filtration Rate 90 mL/min (>60); Est Glom Filt Rate - Afr Amer 109 mL/min (>60); Estimated Creatinine Clearance 39.03 ml/min; Globulin 4.8 g/dL (2.2-4.2); Glucose 112 mg/dL (74-106); Potassium 4.2 mmol/L (3.5-5.1); Protein, Total 7.6 g/dL (6.4-8.2); Sodium Level 133 mmol/L (136-145)
[2020-10-01 03:40] LABS: Differential Comment SCANNED
[2020-10-01 03:41] LABS: Atypical Lymphocyte RARE %
[2020-10-01] MEDS: Heparin Injection (Vial) 5,000 UNIT/ML VIAL 5000 UNIT SC ×2 (06:11→14:30)
--- NOTE | 2020-10-01 06:53 | NURSING ---
pt had po off and 02 off. Po reappilied and read 85% on ra. 02 at 2lnc applied but only came up to 88% so increased to 4lnc
--- NOTE | 2020-10-01 07:18 | PN_ITS ---
Patient Problems: Active and Suspected Problems Gastroenteritis (Acute) Pneumonia (Acute) Hypokalemia (Acute) Hyponatremia (Acute) COVID-19 (Acute) Vitals/I&O's: Vital Signs Temp Pulse Resp BP Pulse Ox 98.1 F 78 20 H 169/70 H 94 10/01/20 03:11 10/01/20 03:11 10/01/20 03:11 10/01/20 03:11 10/01/20 03:11 Oxygen Flow Rate (L/min) 2 Oxygen Delivery Method Nasal Cannula Weight: 73.482 kg Body Mass Index (BMI) 26.9 Intake and Output for Last 24 Hours 09/29/20 09/30/20 10/01/20 23:59 23:59 23:59 Intake Total 2286.66 / 2286.66 911.67 / 971.67 180 / 180 Output Total 300 / 300 350 / 950 800 / 800 Balance 1985.66 / 1985.66 561.67 / 21.67 -620 / -620 Microbiology Past 72 Hours 09/28/20 13:55 Stool Enteric Bacteriology - Final 09/28/20 13:55 Stool C. difficile DNA Amplification - Final 09/29/20 02:05 Urine, Clean Catch Legionella Antigen - Final 09/29/20 02:05 Urine, Clean Catch Streptococcus pneumoniae Antigen (M - Final 09/26/20 13:50 Blood Culture (Wb) - Right Wrist Blood Culture - Preliminary No growth in 48 hours. 09/26/20 12:55 Blood Culture (Wb) - Anticubital Right Blood Culture - Preliminary No growth in 48 hours. Laboratory Results 09/30/20 05:45: Magnesium 2.0 09/30/20 05:45: B-Natriuretic Peptide 42.4 09/30/20 08:10: COVID-19 (CHE) Detected 09/30/20 11:35: D-Dimer Quant (PE/DVT) 1.59 H* 09/30/20 11:35: Procalcitonin 0.11 H 09/30/20 11:45: Sodium 128 L, Potassium 3.4 L, Chloride 95 L, Carbon Dioxide 25.0, Anion Gap 8, BUN 7, Creatinine 0.60, Estim Creat Clear Calc 39.03, Est GFR (MDRD) Af Amer 122, Est GFR (MDRD) Non-Af 101, BUN/Creatinine Ratio 11.6, Glucose 113 H, Calcium 8.3 L 10/01/20 03:00: WBC 5.8, RBC 4.59, Hgb 13.7, Hct 40.2, MCV 87.6, MCH 29.8, MCHC 34.1, RDW Std Deviation 40.1, RDW Coeff of Eamon 12.6, Plt Count 287, MPV 10.1, Immature Gran % (Auto) 0.500, Neut % (Auto) 83.7 H, Lymph % (Auto) 11.3 L, Saline % (Auto) 4.3, Eos % (Auto) 0.0, Baso % (Auto) 0.2, Absolute Neuts (auto) 4.9, Absolute Lymphs (auto) 0.66 L, Nucleated RBC % 0, Differential Comment SCANNED, Atypical Lymphocytes RARE 10/01/20 03:00: Sodium 133 L, Potassium 4.2, Chloride 101, Carbon Dioxide 24.0, Anion Gap 8, BUN 12, Creatinine 0.67, Estim Creat Clear Calc 39.03, Est GFR (MDRD) Af Amer 109, Est GFR (MDRD) Non-Af 90, BUN/Creatinine Ratio 18.0, Glucose 112 H, Calcium 8.9, Total Bilirubin 0.60, AST 42 H, ALT 61 H, Alkaline Phosphatase 109, Total Protein 7.6, Albumin 2.8 L, Globulin 4.8 H, Albumin/Globulin Ratio 0.6 L Current Medications Acetaminophen (Acetaminophen 325 Mg Tablet) 650 mg PO Q6H PRN PRN PRN Reason: Pain Score 1-10/Temp > 100.7 F Last Admin: 09/30/20 20:20 Dose: 650 mg Documented by: Albuterol Sulfate (Albuterol Sulfate 8 Gm Inhaler (60 Puffs)) 2 puff INHALATION Q4H PRN PRN PRN Reason: SOB &/OR WHEEZING Dexamethasone (Dexamethasone 4 Mg Tablet) 6 mg PO DAILY [facility] Last Admin: 09/30/20 12:20 Dose: 6 mg Documented by: Duloxetine HCl (Duloxetine Hcl 30 Mg Capsule) 30 mg PO BID [facility] Last Admin: 09/30/20 20:20 Dose: 30 mg Documented by: Heparin Sodium (Porcine) (Heparin Injection (Vial) 5,000 Unit/Ml Vial) 5,000 unit SC Q8 [facility] Last Admin: 10/01/20 06:11 Dose: 5,000 unit Documented by: Sodium Chloride () 250 mls @ 15 mls/hr IV .[id number] PRN PRN Reason: Saline Flush Last Infusion: 09/27/20 09:15 Dose: Infused Documented by: Sodium Chloride () 250 mls @ 15 mls/hr IV .[id number] PRN PRN Reason: Additional IVPB Infusion Nutritional Formula (Lactose Free) (Ensure Enlive 120 Ml Liquid) 120 ml PO 4X/DAY [facility] Last Admin: 09/30/20 20:20 Dose: Not Given Documented by: Oxycodone HCl (Oxycodone 5 Mg Tablet) 5 mg PO Q4H PRN PRN PRN Reason: Pain Score 4-10 Quetiapine Fumarate (Quetiapine 25 Mg Tablet) 25 mg PO QHS [facility] Last Admin: 09/30/20 20:20 Dose: 25 mg Documented by: Sodium Chloride (0.9% Saline Lock 10 Ml Syringe) 10 - 40 ml IV UD PRN PRN Reason: SALINE FLUSH Last Admin: 09/30/20 09:59 Dose: 10 ml Documented by: Sodium Chloride (0.9% Saline Lock 10 Ml Syringe) 10 - 40 ml IV UD PRN PRN Reason: SALINE FLUSH Medical Necessity - Tobacco Use Smoking Status: Former smoker Assessment/Plan All Active Problems Chest pain (Acute) Gastroenteritis (Acute) Pneumonia (Acute) Hypokalemia (Acute) Hyponatremia (Acute) COVID-19 (Acute) 1. Acute COVID-19 pneumonia; repeat chest x-ray this morning shows worsening bilateral infiltrates Transferred to Covid cohort floor, start on Decadron, ID consult Will check D-dimer and procalcitonin Continue on IV ceftriaxone and azithromycin 2. Acute hypoxic insufficiency secondary to #1, currently on 2 L of oxygen, continue to monitor, Continue with inhaler prn, po steroids, encourage use of incentive spirometer. Wean off oxygen for SPO2 more than 94% 3. Hypokalemia,replacing, recheck in am 4. Dementia with behavioral, continue on Seroquel and Cymbalta 5. DVT PPx- Heparin SC Inpatient E&M: [id number] [facility] Hosp L2
[2020-10-01] MEDS: dexAMETHasone 4 MG Tablet 6 MG PO (10:26)
[2020-10-01] MEDS: DULoxetine Hcl 30 MG Capsule PO (10:26)
[2020-10-01] MEDS: Acetaminophen 325 MG Tablet 650 MG PO (14:30)
--- NOTE | 2020-10-01 15:17 | PCM.TXEXTCAR ---
- Diet 09/27/20 08:32 Diet: Regular - General Is pt able to select menu?: No - Routine Orders/Code Status O2 Liters per Minute: 6 O2 Frequency: Continuous Keep PO Greater than or Equal to (%): 94 - Encourage use of incentive spirometer Routine Lab Work: CBC - within 3 days, BMP - within 3 days Code Status: Full Code - Therapies Weight Bearing: Weight bearing as tolerated Physical Therapy: Eval and Treat Occupational Therapy: Eval and Treat - Allergies/Procedures Done in Hospital Allergies/Adverse Reactions: Allergies aspirin Adverse Reaction (Verified 09/26/20 10:29) Nausea Procedures: None - Type of Care/Length of Stay Estimated LOS: Convalescent Care Less Than 30 days Type of Care Needed: Skilled Rehab Potential: Good Prognosis: Good - Additional Orders/Day of Discharge Day of Discharge: 10/01/20 - Dietary and Speech Recommendations Dietitian Recommendations/Changes: will continue regular diet and 120mL ensure enlive 4x/day for additional calories/protein if consumed. May benefit from appetite stimulant. - Follow Up Care Primary Care Physician: Gold Marrero MD [Primary Care Provider] - Please follow up with your Primary Care Physician in: within 2 weeks
--- NOTE | 2020-10-01 15:20 | PCM.DC.SUM ---
Discharge Date and Diagnosis - Problem List Patient Problems: Active and Suspected Problems Gastroenteritis (Acute) Pneumonia (Acute) Hypokalemia (Acute) Hyponatremia (Acute) COVID-19 (Acute) Date of Admission: 09/26/20 Date of Discharge: 10/01/20 - Primary Discharge Diagnosis Acute Problems: Active Problems Acute COVID-19 pneumonia, community-acquired pneumonia ruled out Acute hypoxic respiratory insufficiency Hypokalemia - Secondary Discharge Diagnosis Chronic Problems: Chronic Problems Dementia (Chronic) Chronic diarrhea (Chronic) Urinary incontinence (Chronic) History of TIA (transient ischemic attack) (Chronic) IBS (irritable bowel syndrome) (Chronic) Hospital Course and Treatment Imaging Results: Clinical Impression(s) from Imaging Studies Chest X-Ray 09/26/20 11:37 IMPRESSION: Right upper lobe pneumonia. Electronically Signed: Benedicto Juárez MD at 12:35 EDT Tel , Service support , Acute Abdomen Series 09/28/20 08:10 IMPRESSION: Progressive right upper lobe infiltrate. Electronically Signed: Asif Fiore MD at 15:12 EDT , Service support , Chest X-Ray 09/29/20 20:50 IMPRESSION: Bilateral patchy infiltrates. Electronically Signed: Dimitris Abel DO at 22:15 EDT Tel [phone], Service support , Chest CTA 09/30/20 13:37 IMPRESSION: 1. No evidence of pulmonary embolus. 2. No aortic dissection or aneurysm. 3. Diffuse ground glass infiltrates suspicious for atypical viral pneumonia. Electronically Signed: Kamran Castro DO at 16:28 EDT Tel [phone], Service support , Operations: None Procedures: None Summary of Care Provided: The patient is a 84 year old F with multiple comorbidities who presents with generalized weakness and nausea. Patient has underlying history of dementia and lives with her daughter. She was treated for acute UTI with amoxicillin about a week ago. Patient subsequently developed nausea. He has not been able to keep any food down. She has been progressively weak. Patient's daughter was diagnosed with COVID-19 infection on 09/18/20. None of them have been vaccinated. Patient son had visited after being exposed to Covid and became ill. Patient subsequently became ill and then her daughter also became ill. Her vitals in the ED were stable. Her sodium was 130, potassium 3.4, chloride 96, bicarbonate 24. Chest x-ray has shown upper lobe pneumonia. She was initially managed on IV fluids and antiemetics. She also was started on antibiotics for pneumonia. Patient continued to have low-grade temperatures and hypoxia as well as diarrhea. Stool for enteric panel C. difficile was negative. She was tested for Covid and it was positive. She was transferred to the cohort unit. Patient was on 2 to 6 L of oxygen. Her daughter was unable to accept patient home to keep care for her. It was recommended that patient go to a facility. Patient was accepted to subacute skilled nursing for rehab. Patient Problems: Active and Suspected Problems Gastroenteritis (Acute) Pneumonia (Acute) Hypokalemia (Acute) Hyponatremia (Acute) COVID-19 (Acute) Subjective: On the day of discharge, patient was seen and examined. She has been taking off her oxygen and it takes a while to get her back on. She is 84% on room air. She needs up to 6 L to be back to above 94% on room air. Objective: Physical exam: General: Alert, Oriented x3, Cooperative, No apparent distress, Well developed, comfortable on 6L oxygen HEENT: Atraumatic Oral: Moist Mucosa Neck: Supple Lungs: Clear to auscultation Cardiovascular: HS I+II, regular, no murmurs Abdomen: Bowel Sounds Present, Soft, Non Tender Extremities: No edema Skin: No rashes, No breakdown Neurological: Grossly intact Psych/Mental Status: Appropriate - Physical Exam Vitals/I&O's: Vital Signs Temp Pulse Resp BP Pulse Ox 98.9 F 97 20 H 154/62 H 91 10/01/20 12:13 10/01/20 13:36 10/01/20 13:36 10/01/20 12:13 10/01/20 13:36 Oxygen Flow Rate (L/min) 6 Oxygen Delivery Method Nasal Cannula Weight: 73.482 kg Body Mass Index (BMI) 26.9 Intake and Output for Last 24 Hours 09/29/20 09/30/20 10/01/20 23:59 23:59 23:59 Intake Total 2286.66 / 2286.66 911.67 / 971.67 420 / 420 Output Total 300 / 300 350 / 950 1000 / 1000 Balance 1985.66 / 1985.66 561.67 / 21.67 -580 / -580 Microbiology Past 72 Hours 09/26/20 13:50 Blood Culture (Wb) - Right Wrist Blood Culture - Final No growth in 5 days. 09/26/20 12:55 Blood Culture (Wb) - Anticubital Right Blood Culture - Final No growth in 5 days. 09/28/20 13:55 Stool Enteric Bacteriology - Final 09/28/20 13:55 Stool C. difficile DNA Amplification - Final 09/29/20 02:05 Urine, Clean Catch Legionella Antigen - Final 09/29/20 02:05 Urine, Clean Catch Streptococcus pneumoniae Antigen (M - Final Laboratory Results 10/01/20 03:00: WBC 5.8, RBC 4.59, Hgb 13.7, Hct 40.2, MCV 87.6, MCH 29.8, MCHC 34.1, RDW Std Deviation 40.1, RDW Coeff of Eamon 12.6, Plt Count 287, MPV 10.1, Immature Gran % (Auto) 0.500, Neut % (Auto) 83.7 H, Lymph % (Auto) 11.3 L, [place] % (Auto) 4.3, Eos % (Auto) 0.0, Baso % (Auto) 0.2, Absolute Neuts (auto) 4.9, Absolute Lymphs (auto) 0.66 L, Nucleated RBC % 0, Differential Comment SCANNED, Atypical Lymphocytes RARE 10/01/20 03:00: Sodium 133 L, Potassium 4.2, Chloride 101, Carbon Dioxide 24.0, Anion Gap 8, BUN 12, Creatinine 0.67, Estim Creat Clear Calc 39.03, Est GFR (MDRD) Af Amer 109, Est GFR (MDRD) Non-Af 90, BUN/Creatinine Ratio 18.0, Glucose 112 H, Calcium 8.9, Total Bilirubin 0.60, AST 42 H, ALT 61 H, Alkaline Phosphatase 109, Total Protein 7.6, Albumin 2.8 L, Globulin 4.8 H, Albumin/Globulin Ratio 0.6 L Current Medications Acetaminophen (Acetaminophen 325 Mg Tablet) 650 mg PO Q6H PRN PRN PRN Reason: Pain Score 1-10/Temp > 100.7 F Last Admin: 10/01/20 14:30 Dose: 650 mg Documented by: Albuterol Sulfate (Albuterol Sulfate 8 Gm Inhaler (60 Puffs)) 2 puff INHALATION Q4H PRN PRN PRN Reason: SOB &/OR WHEEZING Dexamethasone (Dexamethasone 4 Mg Tablet) 6 mg PO DAILY [facility] Last Admin: 10/01/20 10:26 Dose: 6 mg Documented by: Duloxetine HCl (Duloxetine Hcl 30 Mg Capsule) 30 mg PO BID [facility] Last Admin: 10/01/20 10:26 Dose: 30 mg Documented by: Heparin Sodium (Porcine) (Heparin Injection (Vial) 5,000 Unit/Ml Vial) 5,000 unit SC Q8 [facility] Last Admin: 10/01/20 14:30 Dose: 5,000 unit Documented by: Sodium Chloride () 250 mls @ 15 mls/hr IV .[id number] PRN PRN Reason: Saline Flush Last Infusion: 09/27/20 09:15 Dose: Infused Documented by: Sodium Chloride () 250 mls @ 15 mls/hr IV .[id number] PRN PRN Reason: Additional IVPB Infusion Nutritional Formula (Lactose Free) (Ensure Enlive 120 Ml Liquid) 120 ml PO 4X/DAY [facility] Last Admin: 10/01/20 14:31 Dose: Not Given Documented by: Oxycodone HCl (Oxycodone 5 Mg Tablet) 5 mg PO Q4H PRN PRN PRN Reason: Pain Score 4-10 Quetiapine Fumarate (Quetiapine 25 Mg Tablet) 25 mg PO QHS [facility] Last Admin: 09/30/20 20:20 Dose: 25 mg Documented by: Sodium Chloride (0.9% Saline Lock 10 Ml Syringe) 10 - 40 ml IV UD PRN PRN Reason: SALINE FLUSH Last Admin: 09/30/20 09:59 Dose: 10 ml Documented by: Sodium Chloride (0.9% Saline Lock 10 Ml Syringe) 10 - 40 ml IV UD PRN PRN Reason: SALINE FLUSH Discharge Diet: No Restrictions Discharge Activity: Return to Normal Activity Home Medications: Medications to take at Discharge Duloxetine Hcl [Cymbalta] 30 mg PO BID 09/26/20 Ondansetron [Zofran Odt] 1 - 2 tablet SL Q8H PRN PRN 09/26/20 Quetiapine Fumarate [Seroquel] 25 mg PO QHS 09/26/20 Acetaminophen [Tylenol Tablet] 650 mg PO Q6H PRN PRN tablet 10/01/20 Albuterol Inhaler [Ventolin Hfa] 2 puff INHALATION Q4H PRN PRN inhaler 10/01/20 Dexamethasone [Decadron] 6 mg PO DAILY tablet 10/01/20 Ensure Enlive 120 ml PO 4X/DAY liquid 10/01/20 Primary Care Physician: Gold Marrero MD [Primary Care Provider] - Please follow up with your Primary Care Physician in: within 2 weeks Disposition: [facility] facility Minutes spent on discharge:: 40 Patient Condition:: Stable Medical Necessity - Tobacco Use Smoking Status: Former smoker Tobacco Use: Non-smoker Meaningful Use Info Meaningful Use Diagnoses (Choose all that apply): None applicable Inpatient E&M: 57790 [facility]
--- NOTE | 2020-10-01 15:40 | CASEMGMT ---
Social Work Return call from the [facility] at [place] and they have obtained precert. Physician notified and pt can be discharged today. PASSRR completed in [facility] system and transportation arranged with Physician's ambulance for a 6:30 tack picker via [facility]. Orders faxed to [facility] and Nursing updated on discharge plan. Phone call to pt dgt Nicko and updated that SNF can accept today and physician feels pt is ready for discharge. Dgt is agreeable with discharge plan. ELENA Valencia
--- NOTE | 2020-10-01 16:30 | NURSING ---
report called to nurse at [facility].
--- NOTE | 2020-10-01 20:15 | NURSING ---
Physicians transport here at this time to transport pt to [facility].
== END 2020-10-01 20:15 | disposition skilled nursing facility (03) | DRG 177 ==
LOC: ED 14:43 → MS3 15:13 → ICU 09-30 10:22
PROVIDERS: Family Medicine; Admitting Provider Student in an Organized Health Care Education/Training Program; Emergency Provider Emergency Medicine; PCP Internal Medicine; Visit Provider Internal Medicine
DX: U07.1 COVID-19 (principal); J12.82 Pneumonia due to coronavirus disease 2019; F03.91 Unspecified dementia, unspecified severity, with behavioral disturbance; E87.1 Hypo-osmolality and hyponatremia; R09.02 Hypoxemia; E87.6 Hypokalemia; R55 Syncope and collapse; K52.9 Noninfective gastroenteritis and colitis, unspecified; R53.81 Other malaise; E78.5 Hyperlipidemia, unspecified; Z79.899 Other long term (current) drug therapy; Z87.440 Personal history of urinary (tract) infections; Z86.73 Personal history of transient ischemic attack (TIA), and cerebral infarction without residual deficits; Z87.891 Personal history of nicotine dependence
CPT/HCPCS: 36415; 71045; 71275; 74022; 80048; 80053; 80076; 81001; 82962; 83735; 83880; 84145; 85025; 85379; 87040; 87449; 87493; 87506; 87635; 93005; 97162; 97165; 97802; 99284; J7030; J7050; Q9967; A4216; J0696; J2405; U0002

== ENCOUNTER 2021-12-29 20:59 | Emergency (ER) | payer MEDICARE, MEDICAID, SELFPAY ==
[2021-12-29 21:00] VITALS: BP 124/76; PULSE 82; RESP 18; TEMP 36.1; O2SAT 94; BMI 16.8
--- NOTE | 2021-12-29 21:40 | EDS_ITS ---
HPI HPI - Fall History of Present Illness Chief Complaint: Fall Informant: patient, family and SNF Occured/Mechanism Occurred: Today Mechanism/Context: Yes same level fall Usually ambulates: Non-Ambulatory Pain/Injury Pain Location: head, neck, chest and lower extremity Quality of Pain: Sharp Current Severity: Moderate Maximum Severity: Moderate Associated Symptoms Associated Symptoms: Negative for Parasthesias, Weakness, Loss of function, Loss of consciousness or Amnesia Narrative Narrative: 86-year-old female history of TIA and schizophrenia. Patient resides in a local [place] [facility] [place]. She is wheelchair-bound and does not walk due to contractures in her lower extremities. She slipped out of the wheelchair fell striking her forehead causing a laceration. She is on a blood thinner Xarelto. Also complaining of neck pain and she is in a c-collar by the squad. Chest discomfort post fall on her sternum and left knee pain. Family is present her daughter and grandson. They state the patient is normally nonambulatory. Tetanus Immunization: Unknown Prior similar symptoms: Yes Recent Illness/Hospitalization: No PFSH PFSH Medical History Anxiety Hx-TIA (transient ischemic attack) Metabolic encephalopathy Schizophrenia Home Medications duloxetine 30 mg capsule,delayed release 30 mg PO BID 09/26/20 [History Last Taken Unknown] ondansetron 4 mg disintegrating tablet 1 - 2 tablet sublingual Q8H PRN PRN Nausea/Vomiting 09/26/20 [History Last Taken Unknown] quetiapine 25 mg tablet 25 mg PO QHS 09/26/20 [History Last Taken Unknown] acetaminophen 325 mg tablet 650 mg PO Q6H PRN PRN Pain Score 1-10/Temp > 100.7 F 10/01/20 [Rx Last Taken Unknown] albuterol sulfate 90 mcg/actuation aerosol inhaler 2 puff inhalation Q4H PRN PRN SOB 12/29/21 [History Last Taken Unknown] benztropine 0.5 mg tablet 1 tab PO BID 12/29/21 [History Last Taken Unknown] haloperidol 1 mg tablet 1 tab PO QHS 12/29/21 [History Last Taken Unknown] hyoscyamine sulfate 0.125 mg tablet (Levsin) 0.125 mg PO Q4H PRN PRN INCREASED SECRETIONS 12/29/21 [History Last Taken Unknown] morphine concentrate 100 mg/5 mL (20 mg/mL) oral solution 0.5 ml sublingual Q2H PRN PRN PAIN OR RESTLESSNESS 12/29/21 [History Last Taken Unknown] rivaroxaban 15 mg tablet (Xarelto) 1 tab PO DAILY 12/29/21 [History Last Taken Unknown] tramadol 50 mg tablet 1 tab PO Q12H PRN Pain 12/29/21 [History Last Taken Unknown] Allergy/AdvReac Type Severity Reaction Status Date / Time aspirin AdvReac Nausea Verified 12/29/21 21:04 Social History Smoking Status: Former smoker ROS ROS ED ROS Narrative No recent illness per family. Review of Systems ROS Unobtainable: Denies due to encephalopathy Constitutional Constitutional ED: Denies chills Eyes Eyes: Denies blurry vision ENT ENT ED: Denies ear pain Cardiovascular Cardiovascular: Denies chest pain Respiratory/Chest Respiratory/Chest: Denies cough Genitourinary Genitourinary ED: Denies dysuria Musculoskeletal Musculoskeletal: Denies arthralgias Integumentary Denies abscess Neurologic Neurologic: Denies headache(s) Endocrine Endocrinology: Denies polydipsia Hematologic/Lymphatic Hematologic/Lymphatic: Denies easy bleeding Allergic/Immunologic Allergic/Immunologic ED: Denies mouth swelling EXAM Physical Exam Narrative Exam Narrative: 86-year-old female. Vital signs stable afebrile. H EENT exam she is a lacerat ion midportion of the top of her forehead just below the hairline. It will need suturing.. Mild bleeding. Pupils round reactive light. Scalp nontender. She has a c-collar on. Trachea midline. Lungs clear to auscultation. Chest wall nontender. No contusion or subcu air. No bruising. No crepitance of the ribs. Ribs are nontender. Lungs are clear. Heart regular rhythm rate about 80. Ab domen soft nontender. Pelvic girdle intact. Upper extremities are nontender. She has director of learning strength. There is no deformities. Both lower extremities are contractured she is flexed at the hips and knees. She has a bruise on her left knee. She is unable to do full range of motion of her lower extremities. That is chronic. Neurologically she is awake. She does follow commands. She is a limited informant. Const Vital Signs: 12/29/21 21:00 12/29/21 21:08 12/29/21 23:00 Temperature 96.9 F L Temperature Source Temporal Pulse Rate 82 83 Respiratory Rate 18 21 H Respiratory Effort Normal Blood Pressure 124/76 H 110/71 Blood Pressure Mean 92 84 Pulse Ox 94 94 Oxygen Delivery Method Room Air Room Air Positive well nourished, well developed and contractures; Negative for obese, cachectic or unkempt General Appearance ED: well developed and contractures; Negative for unkempt or cachectic Nutritional Appearance: Negative for cachectic or obese HEENT Reports normocephalic trauma and tenderness; Negative for atraumatic Eyes PERRL and EOMs intact bilaterally General Eye ED: Negative for pale conjunctiva or scleral icterus Neck No full ROM, no lymphadenopathy and supple Neck Narrative: C-collar in place. General: tenderness Chest Wall inspection of chest normal and palpation of chest normal Chest Narrative: Nontender sternum and chest wall. Chest: Negative for other Resp normal respiratory effort, no retractions and clear to auscultation bilaterally Auscultation: Negative for rales, rhonchi or wheezes Cardio regular rate, regular rhythm, S1 normal heart sound, S2 normal heart sound and no murmurs Rate: Negative for bradycardia Rhythm: Negative for abnormal rhythm GI non-tender Inspection: Negative for abdominal distention Auscultation: normoactive bowel sounds Palpation: soft; Negative for guarding Back/Spine no CVA tenderness General Back: Negative for CVA tenderness Cervical Spine: cervical spine tenderness Neuro moves all extremities Sensorium / Orientation: alert, oriented to person and oriented to place Psych mental status grossly normal Appearance: Negative for unkempt Attitude: No agitated Mood & Affect: Negative for depressed, anxious or tearful Skin Rashes: no rashes Trauma: laceration MDM MDM MDM Narrative Medical decision making narrative: 86-year-old female from [place] [facility] [place] on Xarelto slipped and fell out of a wheelchair because she is nonambulatory striking her head causing a laceration which will need to be repaired. She will obtain a CAT scan of her head and neck. Chest x-ray due to reported sternal pain post fall. Had an x-ray of her left knee that is bruised. Tetanus will be updated. The forehead laceration will need repaired. Repeat exam patient doing well at 11:55 PM. A suture repaired her forehead laceration. X-rays and CAT scan are unremarkable. Family requested a x-ray of the hip which will be obtained. As always that is negative she will be discharged back to the extended care facility. Radiography Diagnostic Testing: Clinical Impression(s) from Imaging Studies Brain CT 12/29/21 22:06 IMPRESSION: Chronic involutional changes of the brain. Electronically Signed: Mehran VincentDO marco a at 22:29 EDT Reading Location ID and State: [facility] [place] Tel , Service support , Cervical Spine CT 12/29/21 22:06 IMPRESSION: Multilevel degenerative changes, as described above. Electronically Signed: Mehran VincentDO marco a at 22:31 EDT Reading Location ID and State: [facility] [place] Tel , Service support , Chest X-Ray 12/29/21 22:29 IMPRESSION: Normal x-ray examination of the chest. Electronically Signed: Mehran VincentDO marco a at 22:54 EDT Reading Location ID and State: [facility] [place] Tel , Service support , Knee X-Ray 12/29/21 22:29 IMPRESSION: No acute findings Electronically Signed: Mehran VincentDO marco a at 22:54 EDT Reading Location ID and State: [facility] [place] Tel , Service support , Chest x-ray, single view, portable interpreted myself and radiologist shows chronic changes no acute process. No obvious rib fractures. Left knee x-ray 3 view shows no acute abnormality. There was no signs of fracture or dislocation of either the knee or the femur. Interpreted by myself. And the radiologist. Left hip x-ray shows chronic changes but no acute fracture. No dislocation. 3 views interpreted by myself. Rhythm Strip Rhythm Strip: Sinus Rhythm Rate: 94 EKG Initial EKG: Attestation: I personally reviewed and interpreted this EKG as follows: Interpretation: Sinus Rhythm and No Acute Injury Pattern Comments: Normal sinus rhythm rate 94. Old inferior infarct. No acute abnormality. No DE or ischemia. Procedures Lacerations Forehead laceration: Length: 2.76 in Depth: Skin Shape: Linear Prep: Shure-Clens Number of Sutures/Ginna: 5 Suture Information: Ethilon, Simple and 5-0 Comment: Patient had irregular Y-shaped laceration mid to upper forehead. Local anesthetized with let then lidocaine with epinephrine. Cleaned with Shur- Clens. Washed with saline. Explored. Closed using 5 simple interrupted 5-0 Ethilon sutures. The distal end of the laceration was more of a skin tear and was Dermabond glue. Good wound closure and hemostasis of the pain. Patient tolerated procedure well. Family was instructed on wound care. Discharge Plan Triage Chief Complaint: Fall Other Complaint: Head Injury ED Provider: Dinesh Lewis Dx/Rx/DC Orders Clinical Impression: Fall, Head injury, Forehead laceration, Contusion of knee, Chronic anticoagulation Instructions: ED Head Injury (Adult), ED Laceration Face Suture or ... Prescriptions: No Action ondansetron 4 MG tablet 1 - 2 tablet SL Q8H PRN PRN (Reason: Nausea/Vomiting) duloxetine 30 MG capsule 30 mg PO BID quetiapine 25 MG tablet 25 mg PO QHS acetaminophen 325 MG tablet 650 mg PO Q6H PRN PRN (Reason: Pain Score 1-10/Temp > 100.7 F) 0RF benztropine 0.5 mg tablet 1 tab PO BID morphine concentrate 100 mg/5 mL (20 mg/mL) solution 0.5 ml sublingual Q2H PRN PRN (Reason: PAIN OR RESTLESSNESS) haloperidol 1 mg tablet 1 tab PO QHS tramadol 50 mg tablet 1 tab PO Q12H PRN (Reason: Pain) hyoscyamine sulfate [Levsin] 0.125 mg Tablet 0.125 mg PO Q4H PRN PRN (Reason: INCREASED SECRETIONS) albuterol sulfate 90 mcg/actuation HFA aerosol inhaler 2 puff INHALATION Q4H PRN PRN (Reason: SOB) Xarelto 15 mg tablet 1 tab PO DAILY Primary Care Provider: Gold Marrero Referrals: Gold Marrero MD [Primary Care Provider] - 10 Day for suture removal Activity Restrictions/Additional Instructions: Keep the wound clean. Apply antibiotic ointment daily. Stitches out in 7 to 10 days. Disposition Disposition: Home, Self Care
[2021-12-29] MEDS: Lidocaine 1% /Epi 1:100 (20ml) 20 ML Vial 10 ML INFILT (21:54)
[2021-12-29] MEDS: Diphth,Pertuss(Acell),Tet Vac 0.5 ML Vial IM (21:54)
[2021-12-29] MEDS: Lidocaine/Epi/Tetracaine 50 ML 1 APPLIC TOPICAL (21:55)
--- NOTE | 2021-12-29 22:06 | CT_ITS ---
STUDY: CT CERVICAL SPINE WITHOUT CONTRAST REASON FOR EXAM: Female, 86 years old. fall RADIATION DOSAGE (If Supplied By Facility): CTDIvol = ( 12.72 ) mGy, DLP = ( 522.59 ) mGycm TECHNIQUE: High resolution transaxial imaging was performed without contrast material. Sagittal and coronal images were reconstructed. Individualized dose optimization techniques were used for this CT. COMPARISON: None FINDINGS: Normal craniovertebral junction. Normal anterior atlantoaxial articulation. Normal odontoid process. Normal cervical lordosis. Normal vertebral bodies and posterior osseous elements. No acute fracture or listhesis. Moderate to severe multilevel degenerative disc disease without critical stenosis. Normal visualized soft tissue structures. CT/Spine Cervical without Contras IMPRESSION: Multilevel degenerative changes, as described above. Electronically Signed: Mehran Diallo DO at 22:31 EDT ,
--- NOTE | 2021-12-29 22:06 | CT_ITS ---
STUDY: CT BRAIN WITHOUT CONTRAST REASON FOR EXAM: Female, 86 years old. trauma RADIATION DOSAGE (If Supplied By Facility): CTDIvol = ( 44.99 ) mGy, DLP = ( 796.11 ) mGycm TECHNIQUE: Transaxial CT imaging of the brain was performed without administration of intravenous contrast material. Individualized dose optimization techniques were used for this CT. COMPARISON: No relevant priors. FINDINGS: Normal soft tissue structures. Normal calvarium. There is moderate cerebral atrophy with widening of the extra-axial spaces and ventricular dilatation. There are areas of decreased attenuation within the white matter tracts of the supratentorial brain, consistent with microvascular disease changes. Normal basal ganglia and thalami. Normal brainstem. There is mild cerebellar atrophy. There is no intracranial hemorrhage. There are no findings of an acute ischemic infarction. Normal visualized paranasal sinuses. CT/Brain/Head without Contrast IMPRESSION: Chronic involutional changes of the brain. Electronically Signed: Mehran Diallo DO at 22:29 EDT ,
--- NOTE | 2021-12-29 22:09 | EKGRS_ITS ---
Test Reason : FALL Blood Pressure : / mmHG Vent. Rate : 094 BPM Atrial Rate : 094 BPM P-R Int : 152 ms QRS Dur : 092 ms QT Int : 368 ms P-R-T Axes : 064 -74 056 degrees QTc Int : 460 ms Normal sinus rhythm Left axis deviation Inferior infarct , age undetermined Anterolateral infarct , age undetermined Abnormal ECG Confirmed by PAUL PAYNE, TOAN ([id number]), non linear editor MONSERRAT ALLEN ([id number]) on 12/31/2021 10:32:24 A M Referred By: RAJ Confirmed By:MOOSE MILLER MD
--- NOTE | 2021-12-29 22:29 | RAD_ITS ---
STUDY: X-RAY CHEST REASON FOR EXAM: Female, 86 years old. fall TECHNIQUE: Single AP portable view of the chest. COMPARISON: None. FINDINGS: Elevated right hemidiaphragm The lungs are clear and expanded. There is no demonstrated pleural abnormality. Normal size heart. Normal mediastinum and sharon. Normal visualized pulmonary arteries. Normal visualized aortic arch and descending thoracic aorta. Normal visualized thoracic spine. Normal visualized ribs, clavicles, and shoulders. There is no demonstrated abnormality of the visualized soft tissue structures of the upper abdomen. RAD/Chest 1 View (Portable) IMPRESSION: Normal x-ray examination of the chest. Electronically Signed: Mehran Diallo DO at 22:54 EDT ,
--- NOTE | 2021-12-29 22:29 | RAD_ITS ---
STUDY: X-RAY - LEFT KNEE REASON FOR EXAM: Female, 86 years old. fall TECHNIQUE: 3 view(s) of the knee. COMPARISON: None. FINDINGS: No acute fracture or dislocation. Moderate degenerative changes. No significant joint effusion RAD/Knee 1 or 2 Views IMPRESSION: No acute findings Electronically Signed: Mehran Diallo DO at 22:54 EDT ,
[2021-12-29] MEDS: HYDROcodone Bitartrate/Apap 5/325 Tablet PO (22:57)
[2021-12-29 23:00] VITALS: BP 110/71; PULSE 83; RESP 21; O2SAT 94
--- NOTE | 2021-12-29 23:51 | RAD_ITS ---
STUDY: X-RAY - PELVIS AND LEFT HIP REASON FOR EXAM: Female, 86 years old. fall TECHNIQUE: 3 views of the pelvis and hip. COMPARISON: None. FINDINGS: No definitive fracture however, positioning is limited due to patient''s contracture. Demineralization. Normal soft tissues RAD/HIP, UNI W/ Pelvis 2-3 Views IMPRESSION: Limited evaluation of the left hip without definitive fracture. Recommend CT if clinically indicated Electronically Signed: Mehran Diallo DO at 0:31 EDT ,
--- NOTE | 2021-12-30 00:31 | ED.RN ---
report called to [facility]
[2021-12-30 01:26] VITALS: PULSE 76; RESP 18; O2SAT 98
== END 2021-12-30 01:27 | disposition skilled nursing facility (03) ==
PROVIDERS: Emergency Provider Emergency Medicine; PCP Internal Medicine; Visit Provider Emergency Medicine
DX: S01.81XA Laceration without foreign body of other part of head, initial encounter (principal); F20.9 Schizophrenia, unspecified; S80.02XA Contusion of left knee, initial encounter; W05.0XXA Fall from non-moving wheelchair, initial encounter; Y92.129 Unspecified place in nursing home as the place of occurrence of the external cause; Z23 Encounter for immunization; M62.461 Contracture of muscle, right lower leg; M62.462 Contracture of muscle, left lower leg; Z79.01 Long term (current) use of anticoagulants; Z79.899 Other long term (current) drug therapy; Z99.3 Dependence on wheelchair; Z87.891 Personal history of nicotine dependence; Z86.73 Personal history of transient ischemic attack (TIA), and cerebral infarction without residual deficits
CPT/HCPCS: 12014; 70450; 71045; 72125; 73502; 73560; 90471; 90715; 93005; 99285